=== PATIENT | male | born 1960 | race Caucasian/White ===

== ENCOUNTER 2018-12-26 20:39 | Emergency (ER) | payer OTHER ==
--- OUTSIDE RECORDS SUMMARY | 2018-12-26 20:41 | XMS REPORT ---
:1960 Author Organization [facility] Address [address] [place] [address] Dr. Romero [address] [place] [id number] Care Team Providers Name Role Phone Unavailable Unavailable Unavailable Problems This patient has no known problems. Allergies, Adverse Reactions, Alerts This patient has no known allergies or adverse reactions. Medications This patient has no known medications.
[2018-12-26] MEDS ORDERED: LIDOCAINE 2% MPF 5 ML VIAL ONE (21:29)
[2018-12-26] MEDS ORDERED: TETANUS & DIPHTHERIA TOX,ADULT 0.5 ML VIAL ONE (21:30)
--- NOTE | 2018-12-26 21:50 | ER ---
Nurse's Notes 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 Transition of care: patient was not received from another setting of care. Complicating Factors: There are no complicating factors for this patient. Onset of symptoms was December 26, 2018 at 20:51. Risk Assessment: Do you want to hurt yourself or someone else? Patient reports no desire to harm self or others. Initial Sepsis Screen: Does the patient meet any 2 criteria? No. Patient's initial sepsis screen is negative. Does the patient have a suspected source of infection? No. Patient's initial sepsis screen is negative. Care prior to arrival: None. 20:50 Method Of Arrival: Ambulatory aj 20:50 Acuity: REY 4 aj Triage Assessment: 20:52 General: Appears in no apparent distress. comfortable, Behavior is calm, cooperative, aj appropriate for age. Pain: Denies pain. Neuro: Level of Consciousness is awake, alert, obeys commands, Oriented to person, place, time, situation, Appropriate for age. Respiratory: No deficits noted. Airway is patent Respiratory effort is even, unlabored, Respiratory pattern is regular, symmetrical. Derm: Skin is intact, is healthy with good turgor, Skin is pink, warm \T\ dry. normal. Injury Description: Laceration sustained to dorsal aspect of distal phalanx of left index finger, dorsal aspect of middle phalanx of left index finger and dorsal aspect of proximal phalanx of left index finger. Historical: - Allergies: 20:52 No Known Allergies; - Home Meds: 21:04 aspirin 81 mg Oral chew [Active]; Plavix 75 mg Oral tab [Active]; losartan 50 mg oral jb4 tab [Active]; metoprolol tartrate 25 mg Oral tab [Active]; meloxicam 15 mg oral tab [Active]; baclofen 10 mg Oral tab [Active]; Lipitor 40 mg Oral tab [Active]; gabapentin 800 mg oral tab [Active]; - PSHx: 20:52 Heart stents; aj - Immunization history:: Last tetanus immunization: unknown. - Social history:: Smoking status: Patient uses tobacco products, smokes one-half pack cigarettes per day. - Ebola Screening: : Patient negative for fever greater than or equal to 101.5 degrees Fahrenheit, and additional compatible Ebola Virus Disease symptoms Patient denies exposure to infectious person Patient denies travel to an Ebola-affected area in the 21 days before illness onset No symptoms or risks identified at this time. Screenin:07 Abuse screen: Denies threats or abuse. Nutritional screening: No deficits noted. jb4 Tuberculosis screening: No symptoms or risk factors identified. Fall Risk None identified. Assessment: 21:05 General: Appears in no apparent distress. comfortable, Behavior is calm, cooperative, jb4 appropriate for age. Pain: Complains of pain in palmar aspect of distal phalanx of left index finger and palmar aspect of middle phalanx of left index finger Pain does not radiate. Pain currently is 4 out of 10 on a pain scale. Quality of pain is described as throbbing. Neuro: Level of Consciousness is awake, alert, obeys commands, Oriented to person, place, time, situation. Cardiovascular: Patient's skin is warm and dry. Respiratory: Airway is patent Respiratory effort is even, unlabored, Respiratory pattern is regular, symmetrical. GI: No signs and/or symptoms were reported involving the gastrointestinal system. : No signs and/or symptoms were reported regarding the genitourinary system. EENT: No signs and/or symptoms were reported regarding the EENT system. Derm: Skin Laceration to the left index finger, otherwise skin is intact Skin is pink, warm \T\ dry. Musculoskeletal: Circulation, motion, and sensation intact. Injury Description: Laceration sustained to palmar aspect of distal phalanx of left index finger and palmar aspect of middle phalanx of left index finger is clean, 2.6 to 7.5 cm long, not bleeding. 22:31 Reassessment: Patient appears in no apparent distress at this time. Patient and/or jb4 family updated on plan of care and expected duration. Pain level reassessed. Patient is alert, oriented x 3, equal unlabored respirations, skin warm/dry/pink. Vital Signs: 20:52 BP 150 / 79; Pulse 72; Resp 19; Temp 98.1; Pulse Ox 98% on R/A; Weight 129.27 kg; aj Height 6 ft. 0 in. (182.88 cm); 22:31 BP 140 / 99; Pulse 80; Resp 16; Pulse Ox 98% on R/A; jb4 20:52 Body Mass Index 38.65 (129.27 kg, 182.88 cm) ED Course: 20:42 Patient arrived in ED. do 20:42 Mike Puckett MD is Private Physician. do 20:50 Juan Cuellar, RN is Primary Nurse. jb4 20:50 Art Reveles PA is PHCP. cp 20:51 Abraham Tucker MD is Attending Physician. cp 20:51 Triage completed. aj 20:52 Arm band placed on left wrist. Patient placed in an exam room. aj 21:07 Patient has correct armband on for positive identification. Bed in low position. Call jb4 light in reach. Side rails up X 1. Pulse ox on. NIBP on. 21:48 Mike Puckett MD is Referral Physician. cp 22:31 Assist provider with laceration repair on palmar aspect of middle phalanx of left index jb4 finger that was between 2.6 to 7.5 cm. Patient did not have IV access during this emergency room visit. 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 Exp: jb4 10/14/2020. Lot #: [id number]. } Route: IM; Site: left deltoid; 22:00 Follow up: Response: No adverse reaction jb4 21:40 Drug: Lidocaine (2 %) 5 ml {Note: Administered by ER Provider..} Volume: 5 ml; Route: jb4 Infiltration; 22:10 Follow up: Response: No adverse reaction jb4 Outcome: 21:49 Discharge ordered by . cp 22:31 Discharged to home ambulatory. jb4 22:31 Condition: stable 22:31 Discharge instructions given to patient, Instructed on discharge instructions, follow up and referral plans. Demonstrated understanding of instructions, follow-up care. 22:38 Patient left the ED. jb4 Signatures: Ely Smallwood RN Art Quiles PA PA cp Ogletree, Danielle do Bryson, James, RN RN jb4
--- NOTE | 2018-12-26 21:50 | EDPHYS ---
Physician Documentation [facility] Name: Lazaro Rivers Age: 58 yrs Sex: Male : 1960 Arrival Date: 12/26/2018 Time: 20:42 Bed 16 Private MD: Mike Puckett E ED Physician Abraham Tucker HPI: 12/26 21:10 This 58 yrs old Male presents to ER via Ambulatory with complaints of cp Laceration To Hand. 21:10 The patient has a laceration occurred at home, and there are no complicating factors. cp The injury was accidental. The laceration(s) is(are) located on the left index finger. Onset: The symptoms/episode began/occurred just prior to arrival. Historical: - Allergies: 20:52 No Known Allergies; aj - Home Meds: 21:04 aspirin 81 mg Oral chew [Active]; Plavix 75 mg Oral tab [Active]; losartan 50 mg oral jb4 tab [Active]; metoprolol tartrate 25 mg Oral tab [Active]; meloxicam 15 mg oral tab [Active]; baclofen 10 mg Oral tab [Active]; Lipitor 40 mg Oral tab [Active]; gabapentin 800 mg oral tab [Active]; - PSHx: 20:52 Heart stents; aj - Immunization history:: Last tetanus immunization: unknown. - Social history:: Smoking status: Patient uses tobacco products, smokes one-half pack cigarettes per day. - Ebola Screening: : Patient negative for fever greater than or equal to 101.5 degrees Fahrenheit, and additional compatible Ebola Virus Disease symptoms Patient denies exposure to infectious person Patient denies travel to an Ebola-affected area in the 21 days before illness onset No symptoms or risks identified at this time. ROS: 21:15 Constitutional: Negative for body aches, chills, fever, poor PO intake. cp 21:15 Eyes: Negative for injury, pain, redness, and discharge. cp 21:15 Cardiovascular: Negative for chest pain, palpitations. 21:15 Respiratory: Negative for cough, shortness of breath, wheezing. 21:15 Abdomen/GI: Negative for abdominal pain, nausea, vomiting, and diarrhea. 21:15 Skin: Positive for laceration(s), of the left index finger. 21:15 Neuro: Negative for numbness, weakness. 21:15 All other systems are negative. Exam: 21:30 Constitutional: The patient appears in no acute distress, alert, awake, well developed, cp well nourished. 21:30 Head/Face: Normocephalic, atraumatic. cp 21:30 Chest/axilla: Inspection: normal. 21:30 Cardiovascular: Rate: normal. 21:30 Respiratory: the patient does not display signs of respiratory distress, Respirations: normal, no use of accessory muscles, no retractions, no splinting, no tachypnea. 21:30 Musculoskeletal/extremity: ROM: full active range of motion, in the left index finger, Perfusion: the extremity is normally perfused throughout, Sensation intact. Tendon exam: specific tendon testing normal through active and passive range of motion 21:30 Skin: injury, laceration(s), the wound is approximately 2 cm(s), of the radial side proximal and middle phalanx, that can be described as clean, linear, with mild bleeding. Vital Signs: 20:52 BP 150 / 79; Pulse 72; Resp 19; Temp 98.1; Pulse Ox 98% on R/A; Weight 129.27 kg; aj Height 6 ft. 0 in. (182.88 cm); 22:31 BP 140 / 99; Pulse 80; Resp 16; Pulse Ox 98% on R/A; jb4 20:52 Body Mass Index 38.65 (129.27 kg, 182.88 cm) aj Laceration: 21:45 Wound Repair of 2cm ( 0.8in ) subcutaneous laceration to radial side left index finger cp proximal and middle phalanx. Linear shaped.. Distal neuro/vascular/tendon intact. Anesthesia: Wound infiltrated with 3 mls of 2% lidocaine. Wound prep: Moderate cleansing by nurse, Wound irrigation by nurse. Skin closed with 3 4-0 Prolene using interrupted sutures and sterile technique. Dressed with Bacitracin, tube gauze. Patient tolerated well. MDM: 20:51 Patient medically screened. cp 21:00 Differential diagnosis: superficial laceration, tendon injury, vascular injury. cp 21:48 Data reviewed: vital signs, nurses notes, and as a result, I will discharge patient. cp 21:48 Counseling: I had a detailed discussion with the patient and/or guardian regarding: the cp historical points, exam findings, and any diagnostic results supporting the discharge/admit diagnosis, to return to the emergency department if symptoms worsen or persist or if there are any questions or concerns that arise at home. Response to treatment: the patient's symptoms have markedly improved after treatment, and as a result, I will discharge patient. Special discussion: Wound care and f/u to have sutures removed in 7-10 days. 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 Exp: jb4 10/14/2020. Lot #: [id number]. } Route: IM; Site: left deltoid; 22:00 Follow up: Response: No adverse reaction jb4 21:40 Drug: Lidocaine (2 %) 5 ml {Note: Administered by ER Provider..} Volume: 5 ml; Route: jb4 Infiltration; 22:10 Follow up: Response: No adverse reaction jb4 Disposition: 12/27 06:13 Co-signature as Attending Physician, Abraahm Tucker MD I agree with the assessment and 4 plan of care. Disposition: 12/26/18 21:49 Discharged to Home. Impression: Laceration without foreign body of left index finger without damage to nail. - Condition is Stable. - Discharge Instructions: Laceration Care, Adult. - Medication Reconciliation Form, Thank You Letter, Antibiotic Education, Prescription Opioid Use form. - Follow up: Mike Puckett MD; When: 7 - 10 days; Reason: Staple/Suture removal. - Problem is new. - Symptoms have improved. Signatures: Ely Smallwood RN RN Art Corrales PA PA cp Bryson, James, RN RN jb4 Abraham Tucker MD MD tw4 Corrections: (The following items were deleted from the chart) 12/26 22:38 21:49 12/26/2018 21:49 Discharged to Home. Impression: Laceration without foreign body jb4 of left index finger without damage to nail. Condition is Stable. Forms are Medication Reconciliation Form, Thank You Letter, Antibiotic Education, Prescription Opioid Use. Follow up: Mike Puckett; When: 7 - 10 days; Reason: Staple/Suture removal. Problem is new. Symptoms have improved. cp
== END 2018-12-26 22:38 | disposition home or self-care (01) ==
LOC: ER 20:39
PROC: 0JQK0ZZ Repair Left Hand Subcutaneous Tissue and Fascia, Open Approach (ICD-10-PCS; principal; 2018-12-26)
DX: S61.211A Laceration without foreign body of left index finger without damage to nail, initial encounter (principal); W45.8XXA Other foreign body or object entering through skin, initial encounter; Y93.9 Activity, unspecified; Y92.009 Unspecified place in unspecified non-institutional (private) residence as the place of occurrence of the external cause; Z23 Encounter for immunization; Z95.818 Presence of other cardiac implants and grafts; F17.210 Nicotine dependence, cigarettes, uncomplicated; Z79.01 Long term (current) use of anticoagulants; Z79.82 Long term (current) use of aspirin
CPT/HCPCS: 90471; 90714; 99283

== ENCOUNTER 2020-05-04 16:27 | Emergency (ER) | payer OTHER ==
--- OUTSIDE RECORDS SUMMARY | 2020-05-04 16:29 | XMS REPORT | Continuity of Care Document ---
:1960 Author Organization [employer] Care Team Providers Name Role Phone [employer] Unavailable Un available Problems Problem Status Onset Classification Date Comments Sourc e Date Reported Discharge 05/06/2015 [facility] Diagnosis: 5 Medical Compression Center fracture of L4 lumbar vertebra Discharge 05/06/2015 [facility] Diagnosis: 5 Medical Compression Center fracture of L2 lumbar vertebra L2, L4 WEDGE Active Garth bishop COMPRESSION 5 Medical FRACTURE Center Medications Medication Details Route Status Patient Ordering Order Source Instructions Provider Date 24 HR tramadol 100 mg = 1 Active Tucker as hydrochloride tab, PO, 015 Medical 100 MG Extended Daily, # 30 Cent er Release Tablet tab, 0 Refill(s) Acetaminophen Notes: Do Inactive Garth bishop 325 MG / not exceed 015 Medical Hydrocodone 4gm/day of Center Bitartrate 10 MG acetaminophe Oral Tablet n. (Same [Mcalister 10/325] as: Mcalister 325/10) Acetaminophen 1 tab, Inactive Richard 325 MG / Route: PO, 015 Medical Hydrocodone Drug Form: Center Bitartrate 10 MG TAB, Dosing Oral Tablet Weight [Mcalister 10/325] 106.818, kg, ONCE, STAT, Start date: 05/03/15 3:35:00, Stop date: 05/03/15 3:35:00 Ondansetron Notes: (Same Inactive [facility] as as: Zofran) 015 Medical Center MEDICATION WASTE Product Size: 4 mg Product Wasted: ___ mg Morphine Notes: (Same Inactive [facility] as:MORPhine 015 Medical Sulfate) Center Morphine 4 mg, Route: Inactive [facility] IVP, ONCE, 015 Medical Dosing Center Weight 106.818, kg, Priority: STAT, Start date: 05/02/15 22:59:00, Stop date: 05/02/15 22:59:00 Ondansetron 4 mg, Route: Inactive Tucker as IVP, Drug 015 Medical form: INJ, Center ONCE, Dosing Weight 106.818, kg, Priority: STAT, Start date: 05/02/15 22:59:00, Stop date: 05/02/15 22:59:00 Saline Flush Notes: (Same No Longer [place] 0.9% as: BD Active 015 Medical Posiflush) Center Allergies, Adverse Reactions, Alerts No Known Medication Allergies Immunizations No Data Provided for This Section Results Order Name Results Value Reference Date Interpretation Comments Elin rce Range CHEM PANEL eGFR 75 05/03 Result Comment: The Medical eGFR is Center calculated using the CKD-EPI formula. In most young, healthy individuals the eGFR will be >90 mL/min/1.73m2 . The eGFR declines with age. An eGFR of 60-89 may be normal in some populations, particularly the elderly, for whom the CKD-EPI formula has not been extensively validated. Use of the eGFR is not recommended in the following populations:< br/>
Lamar viduals with unstable creatinine concentration s, including patients and those with serious co-morbid conditions.<b r/>
Patie nts with extremes in muscle mass or diet.

The data above are obtained from the National Kidney Disease Education Program (NKDEP) which additionally recommends that when the eGFR is used in patients with extremes of body mass index for purposes of drug dosing, the eGFR should be multiplied by the estimated BMI. CHEM PANEL Chloride Lvl 106 95 - 109 05/[facility] CHEM PANEL Creatinine 1.1 0.5 - 1.4 05/[facility] CHEM PANEL Sodium Lvl 140 135 - 145 05/03 [facility] CHEM PANEL Calcium Lvl 8.8 8.5 - 10.5 05/03 [facility] CHEM PANEL Potassium Lvl 4.2 3.5 - 5.1 05/[address] [place] [facility] CHEM PANEL CO2 26 24 - 32 05/03 [facility] CHEM PANEL BUN 19 7 - 22 05/03 [facility] CHEM PANEL Glucose Lvl 92 70 - 99 05/03 [facility] CHEM PANEL AST 16 0 - 37 05/03 [facility] CHEM PANEL Bili Total 0.2 0.2 - 1.3 05/03 [facility] CHEM PANEL Alk Phos 77 39 - 136 05/03 [facility] CHEM PANEL Albumin Lvl 3.7 3.5 - 5.0 05/03 [facility] CHEM PANEL Total Protein 7.2 6.4 - 8.4 05/03 [facility] CHEM PANEL ALT 24 0 - 65 05/03 [facility] CHEM PANEL B/C Ratio 17 6 - 25 05/03 [facility] CHEM PANEL AGAP 12.2 10.0 - 05/[address] [facility] CHEM PANEL Globulin 3.5 2.0 - 4.0 05/03 [facility] CHEM PANEL A/G Ratio 1.1 0.7 - 1.6 05/03 [facility] CHEM PANEL Lactic Acid 0.9 0.5 - 2.2 05/03 [facility] HEMATOLOGY Eosinophils # 0.2 0.0 - 0.5 05/03 [facility] HEMATOLOGY Basophils # 0.1 0.0 - 0.2 05/03 [facility] HEMATOLOGY Monocytes # 0.8 0.0 - 0.8 05/03 [facility] HEMATOLOGY Segs-Bands # 4.3 1.5 - 8.1 05/03 [facility] HEMATOLOGY Lymphocytes # 2.2 1.0 - 5.5 05/03 [facility] HEMATOLOGY Segs 56.5 45.0 - 05/[address] [place] [address] [facility] HEMATOLOGY Lymphocytes 29.8 20.0 - 05/[address] [place] [address] [facility] HEMATOLOGY Monocytes 10.1 2.0 - 12.0 05/03 [facility] HEMATOLOGY Eosinophils 2.5 0.0 - 4.0 05/03 [facility] HEMATOLOGY Basophils 1.1 0.0 - 1.0 05/03 [facility] HEMATOLOGY MCH 30.9 27.0 - 05/[address] [place] [address] [facility] HEMATOLOGY MCHC 32.5 32.0 - 05/03 [place] 36.0 /2014 [facility] HEMATOLOGY MCV 95.0 80.0 - 05/03 [place] 94.0 /2014 [facility] HEMATOLOGY Hgb 14.6 14.0 - 05/03 [place] 18.0 /2014 [facility] HEMATOLOGY Hct 44.9 42.0 - 05/03 [place] 54.0 /2014 [facility] HEMATOLOGY Platelet 176 133 - 450 05/03 /2014 [facility] HEMATOLOGY MPV 9.6 7.4 - 10.4 05/03 /2014 [facility] HEMATOLOGY RDW 14.9 11.5 - 05/03 [facility] 14.5 /2014 [facility] HEMATOLOGY RBC 4.73 4.70 - 05/03 [place] 6.10 /2014 [facility] HEMATOLOGY WBC 7.5 3.7 - 10.4 05/03 /2014 [facility] HEMATOLOGY INR 0.87 0.85 - 05/03 [place] 1.17 /2014 [facility] HEMATOLOGY PTT 30.9 22.9 - 05/03 [place] 35.8 /2014 [facility] HEMATOLOGY PT 12.1 12.0 - 05/03 [facility] 14.7 /2014 [facility] IMMUNOLOGY CDC HIV 4th Negative Negative 05/03 Garth s GEN (05/02/15 10:01 PM) /2014 Medic al Center Pathology Reports No Data Provided for This Section Diagnostic Reports Report Value Date Source Spine lumbar wo MRI OF THE LUMBAR SPINE 05/02/2015 [facility] MRI Center DATE: 05/02/2015 at 11:39 p.m. Comparison studies: CT 2014 at 11:15 p.m., outside imaging from [facility] CT lumbar spine 05/02/2015 at 5:31 p.m. CLINICAL HISTORY: Pain post trauma, urinary inco ntinence. Technique: Multiplanar MR imaging was pe rformed utilizing T1 and T2 weighting. FINDINGS: Compression deform ities of the superior endplates of L2 and L4 are again noted with mild loss of height. There is approximately 20% loss of height of L2 and 15% loss of height of L4. There is no retropulsion. The lumbar vertebrae are otherwise intact and in normal anatomic alignment. Marrow edema is noted within the superior L2 and L4 centra. Fatty degenerative endplate changes noted at L5-S1. T11-T12 to L2-L3: The interv ertebral discs are well-maintained demonstrating normal height and hydration. There are no disc bulges or disc protrusions. There is no compromise of the spinal canal or neural foramina. L3-L4: There is diminished T 2 signal within the intervertebral disc consistent with disc degeneration and desiccation there is a mild disc bulge indenting the ventral thecal sac causing mild stenosis of the spinal canal, and mild bilateral neural for aminal stenosis. L4-L5: There is diminished T 2 signal within the intervertebral disc consistent with disc degeneration and desiccation. There is a high T2 signal right paramedian annular tear, and 5.5 mm right paramedia n disc protrusion indenting the ventral thecal sac causing moderate stenosis of the spinal canal. Bulging of the disc leads to mild bilateral neural foraminal stenosis. L5-S1: There is diminished T 2 signal within the intervertebral disc consistent with disc degeneration desiccation. There is loss of disc height comment a diffuse disc bulge extending into the neural for alessandro causing mild bilateral neural foraminal st enosis. The signal within the lower thoracic spinal cord is normal. IMPRESSION: 1. Acute compression fractur es of the superior endplate of L2 and L4 with approximately 20 and 15% loss of height respectively. There is no retropulsion. 2. Mild disc bulge at L3-L4 causing mild stenosis of the spinal canal, and mild bilateral neural foraminal stenosis. 3. 5.5 mm right paramedian d isc protrusion at L4-L5 causing moderate stenosis of the spinal canal. Bulging of the disc leads to mild bilateral neural foraminal stenosis. 4. Disc bulge at L5-S1 causing mild bilateral ne ural foraminal stenosis. Spine lumbar wo EXAM: LUMBAR SPINE CT 05/02/2015 [facility] CT Center DATE: May 02, 2015 11:17:00 PM INDICATION: Pain post trauma TECHNIQUE: Contiguous axial images of t he lumbar spine are obtained. Computer reformatted coronal and sagittal images are also provided. Axial images are available in both bone and soft tissue algorithm. FINDINGS: Acute compression fracture o f the superior endplate at L2 and L4 noted. Approximately 18% height loss at L2 and 13% height loss at L4. No retropulsion of bony fragments identified. Alignment of the spi ne is maintained. There is n o spinal canal narrowing or neuroforaminal stenosis. Degenerative changes with marginal osteophytes, endplate sclerosis and vacuum disc phenomenon is noted at L5-S1. The paraspinous soft tissues are within normal. IMPRESSION: 1. Acute compression fractur es of the superior endplates of L2 (18% height loss) and L4 (13% height loss) No retropulsion of bony fragments. 2. Degenerative changes at L5-S1. Consultation Notes No Data Provided for This Section Discharge Summaries No Data Provided for This Section History and Physicals No Data Provided for This Section Vital Signs Vital Sign Value Date Comments Source Temperature Oral (F) 97.9 F 05/03/2015 [facility] Heart Rate 56 05/03/2015 [facility] Systolic (mm Hg) 150 05/03/2015 [facility] Diastolic (mm Hg) 77 05/03/2015 [facility] Respitory Rate 18 05/03/2015 [facility] Heart Rate 72 05/03/2015 [facility] Systolic (mm Hg) 130 05/03/2015 [facility] Diastolic (mm Hg) 74 05/03/2015 [facility] Respitory Rate 16 05/03/2015 [facility] Systolic (mm Hg) 138 05/03/2015 [facility] Diastolic (mm Hg) 73 05/03/2015 [facility] Respitory Rate 16 05/03/2015 [facility] Heart Rate 66 05/03/2015 [facility] Weight 106.818 05/03/2015 [facility] BMI Calculated 31.94 05/03/2015 [facility] Height 182.88 cm 05/03/2015 [facility] Temperature Oral (F) 98.9 F 05/03/2015 [facility] Encounters Location Location Encounter Encounter Reason Attending ADM DC Stat us Source Details Type Number For Provider Date Date Visit [facility] [id number] Silvano 05/03 05/03 [facility] Emergency Reyes /2014 [facility] Procedures No Data Provided for This Section Assessment and Plan No Data Provided for This Section Plan of Care No Data Provided for This Section Social History Social History Date Source Social History TypeResponse 05/03/2015 [facility] Smoking Status Current every day smoker; Type: Cigarett es; Exposure to Tobacco Smoke self; Cigarette Smoking Last 365 Days Yes; Reg Smoking Cessation Counseling Yes Family History No Data Provided for This Section Advance Directives No Data Provided for This Section Functional Status No Data Provided for This Section
--- OUTSIDE RECORDS SUMMARY | 2020-05-04 16:29 | XMS REPORT | Continuity of Care Document ---
:1960 Author Organization [facility] t Address [address] [place] [address] Care Team Providers Name Role Phone Hiram RODRIGUEZ, K.H. Attending Clinician Singer GARCIA Attending Clinician Segundo AMAYA S Attending Clinician Darryl RODRIGUEZ, L Attending Clinician Selvin Clemente Attending Clinician Florence Reyes Admitting Clinician Problems Condition Condition Condition Status Onset Resolution Last Treating Co mments Source Name Details Category Date Date Treatment Clinician Date L2, L4 Diagnosis Active 2015-11-13 Mem oria WEDGE 05-02 10:17:00 l COMPRESSIO L2, L4 00:00: Anita galindo N FRACTURE WEDGE 00 COMPRESSIO N FRACTURE Active 05/02/2015 [facility] Discharge Problem 2015-05-06 2015-05-06 Memoria Diagnosis: 05-03 07:26:03 07:26:03 l Compressio 05:00: Avinash camarena n fracture Discharge 00 of L4 Diagnosis: lumbar Compressio vertebra n fracture of L4 lumbar vertebra 5 05/06/2015 [facility] Allergies, Adverse Reactions, Alerts This patient has no known allergies or adverse reactions. Social History Smoking Status Start Date Stop Date Source Social History 2015-05-03 02:42:59 [facility] Medications Ordered Filled Start Stop Current Ordering Indication Dosage Frequency Signature Comments Components Source Medication Medication Date Date Medication? Clinician (SIG) Name Name 24 HR Yes 100 mg = 1 Memori a tramadol 05-03 tab, PO, l hydrochlori 10:48: Daily, # El rosales 100 MG 00 30 tab, 0 Extended Refill(s) Release Tablet Acetaminoph No Notes: Do M emoria en 325 MG / 05-03 not exceed l Hydrocodone 10:46: 4gm/day of Jayson Bitartrate 00 acetaminop 10 MG Oral hen. Tablet (Same as: [Beeler Beeler 10/325] 325/10) Acetaminoph No 1 tab, Juan ahsan en 325 MG / 05-03 Route: PO, l Hydrocodone 08:35: Drug Form: [place]ayson Bitartrate 00 TAB, 10 MG Oral Dosing Tablet Weight [Beeler 106.818, 10/325] kg, ONCE, STAT, Start date: 05/03/15 3:35:00, Stop date: 05/03/15 3:35:00 Ondansetron No Notes: Juan ahsan 05-03 (Same as: l 06:05: Zofran) Jayson 00 MEDICATION WASTE Product Size: 4 mg Product Wasted: ___ mg Morphine No Notes: Memoria 05-03 (Same l 06:05: as:MORPhin e Sulfate) Morphine No 4 mg, Memoria 05-03 Route: l 03:59: IVP, ONCE, Jayson 00 Dosing Weight 106.818, kg, Priority: STAT, Start date: 05/02/15 22:59:00, Stop date: 05/02/15 22:59:00 Ondansetron No 4 mg, Memor ia 05-03 Route: l 03:59: IVP, Drug form: INJ, ONCE, Dosing Weight 106.818, kg, Priority: STAT, Start date: 05/02/15 22:59:00, Stop date: 05/02/15 22:59:00 Saline No Notes: Memoria Flush 0.9% 05-03 (Same as: l 02:55: BD Jayson 00 Posiflush) Vital Signs Vital Name Observation Time Observation Value Comments Source Temperature Oral (F) 2015-05-03 11:12:00 97.9 F [facility] [place] Heart Rate 2015-05-03 11:12:00 [facility] [place] Systolic (mm Hg) 2015-05-03 11:12:00 Juan rial [place] Diastolic (mm Hg) 2015-05-03 11:12:00 Mem orial [place] Respitory Rate 2015-05-03 11:12:00 Memori al [place] Heart Rate 2015-05-03 10:00:00 [facility] [place] Systolic (mm Hg) 2015-05-03 10:00:00 Juan rial [place] Diastolic (mm Hg) 2015-05-03 10:00:00 Mem orial [place] Respitory Rate 2015-05-03 10:00:00 Memori al [place] Systolic (mm Hg) 2015-05-03 08:00:00 Juan rial [place] Diastolic (mm Hg) 2015-05-03 08:00:00 Mem orial [place] Respitory Rate 2015-05-03 08:00:00 Memori al [place] Heart Rate 2015-05-03 08:00:00 [facility] [place] Weight 2015-05-03 02:29:00 [facility] [place] BMI Calculated 2015-05-03 02:29:00 Memori al [place] Height 2015-05-03 02:29:00 182.88 cm [facility] [place] Temperature Oral (F) 2015-05-03 02:29:00 98.9 F [facility] [place] Procedures This patient has no known procedures. Encounters Start End Encounter Admission Attending Care Care Encounter Source Date/Time Date/Time Type Type Clinicians Facility Department ID 2020-04-30 2020-04-30 [facility] [id number] 00:00:00 00:00:00 Shivam Fairchild [id number] [place] [id number] [facility] [id number] [address] 2020-04-28 2020-04-28 Emergency [facility] [id number] 20:23:00 23:48:00 Tim Fairchild [id number] [place] [id number] [place] [id number] 2020-04-16 2020-04-16 Telephone [facility] [id number] 00:00:00 00:00:00 Shivam Fairchild [id number] [place] [id number] Professio [id number] nal [facility] 2020-03-05 2020-03-05 [facility] [id number] 00:00:00 00:00:00 [facility] [id number] [facility] [id number] Specialti [id number] es [address] [place] 2020-03-01 2020-03-01 [facility] [id number] 00:00:00 00:00:00 [facility] [id number] Surgical [id number] Specialti [id number] es [address] [place] 2019-12-19 2019-12-19 [facility]ill [facility] [id number] 00:00:00 00:00:00 [facility] [id number] Surgical [id number] Specialti [id number] es [address] [place] 2019-09-13 2019-09-13 [place] [facility] [id number] 00:00:00 00:00:00 [facility] [id number] Surgical [id number] Specialti [phone] es [address] [place] 2019-09-08 2019-09-08 [place] [facility] [id number] 00:00:00 00:00:00 [facility] [id number] Surgical [id number] Specialti [id number] es [address] [place] 2015-05-02 2015-05-03 Outpatient Bryn [facility] [id number] 21:33:00 06:36:00 Derrek Montalvo Results Test Description Test Time Test Comments Results Result Comments Source CHEM PANEL 2015-05-03 75 [facility] Nancy mitchell 03:01:00 CHEM PANEL 2015-05-03 106 [facility] Nancy nn 03:01:00 CHEM PANEL 2015-05-03 1.1 [facility] Nancy nn 03:01:00 CHEM PANEL 2015-05-03 140 [facility] Nancy nn 03:01:00 CHEM PANEL 2015-05-03 8.8 [facility] Nancy nn 03:01:00 CHEM PANEL 2015-05-03 4.2 [facility] Nancy nn 03:01:00 CHEM PANEL 2015-05-03 26 [facility] Nancy nn 03:01:00 CHEM PANEL 2015-05-03 19 [facility] Nancy nn 03:01:00 CHEM PANEL 2015-05-03 92 [facility] Nancy nn 03:01:00 CHEM PANEL 2015-05-03 16 [facility] Nancy nn 03:01:00 CHEM PANEL 2015-05-03 0.2 [facility] Nancy nn 03:01:00 CHEM PANEL 2015-05-03 77 [facility] Nancy nn 03:01:00 CHEM PANEL 2015-05-03 3.7 [facility] Nancy nn 03:01:00 CHEM PANEL 2015-05-03 7.2 [facility] Nancy nn 03:01:00 CHEM PANEL 2015-05-03 24 [facility] Nancy nn 03:01:00 CHEM PANEL 2015-05-03 17 [facility] Nancy nn 03:01:00 CHEM PANEL 2015-05-03 12.2 [facility] Nancy nn 03:01:00 CHEM PANEL 2015-05-03 3.5 [facility] Nancy nn 03:01:00 CHEM PANEL 2015-05-03 1.1 [facility] Nancy nn 03:01:00 CHEM PANEL 2015-05-03 0.9 [facility] Nancy nn 03:01:00 HEMATOLOGY 2015-05-03 0.2 [facility] Nancy nn 03:01:00 HEMATOLOGY 2015-05-03 0.1 [facility] Nancy nn 03:01:00 HEMATOLOGY 2015-05-03 0.8 [facility] Nancy nn 03:01:00 HEMATOLOGY 2015-05-03 4.3 [facility] Nancy nn 03:01:00 HEMATOLOGY 2015-05-03 2.2 [facility] Nancy nn 03:01:00 HEMATOLOGY 2015-05-03 56.5 [facility] Nancy nn 03:01:00 HEMATOLOGY 2015-05-03 29.8 [facility] Nancy nn 03:01:00 HEMATOLOGY 2015-05-03 10.1 [facility] Nancy nn 03:01:00 HEMATOLOGY 2015-05-03 2.5 [facility] Nancy nn 03:01:00 HEMATOLOGY 2015-05-03 1.1 [facility] Nancy nn 03:01:00 HEMATOLOGY 2015-05-03 03:01:00 Test Item Value Reference Range Interpretation Comme nts MCH (test code = MCH) 30.9 pg 27.0-31.0 [facility] [id number] 03:01:[facility].5[facility] 2015-05-03 03:01:0095.0[facility] [id number] 03:01:0014.6[facility] HkerdzwTKKTVPVHTQ5315-05-18 03:01:0044.9[facility] ZnoqthnKIQCZQYEYY5498-64-43 03:01:32989Pqhsjyjx PmxvhmkGYORZJWNHD8041-66-33 03:01:009.6[facility] [place] [id number] 03:01:0014.9[facility] IiyhcmoHYXAFLGOGT7697-17-90 03:01:00 4.73[facility] AkxmjkjEUQLSAQBIJ5354-03-36 03:01:007.5[facility] 2015-05-03 03:01:000.87[facility] VqcoliqIFOQUQQGXZ9977-51-77 03:01:00 Test Item Value Reference Range Interpretation Comments PTT (test code = PTT) 30.9 s 22.9-35.8 [facility] [id number] 03:01:00 Test Item Value Reference Range Interpretation Comments PT (test code = PT) 12.1 s 12.0-14.7 [id number] 03:01:00Negative (05/02/15 10:01 PM)[facility]
--- OUTSIDE RECORDS SUMMARY | 2020-05-04 16:29 | XMS REPORT | Summary of Care ---
:1960 Author Organization [facility] - [facility] Address [address] [place] [address] Care Team Providers Name Role Phone Zurdo Gandhi MD Unavailable Devante Fermin MD Unavailable Kevil Primary Care Provider Reason for Visit Reason Comments Notification The patient's stated th e celebrex was written for 90 days but it says one a day and it has al ways been twice a day. Is this correct? Please call to advise Encounter Details Date Type Department Care Team Description 03/05/2020 Telephone [facility] Orthopaedic Shiva Raymond N otification (The Surgery- Aurelia PAC patient's stated [address], [address] was written [address] [place] 90 [place] [address] [place], [place] one a day and it has [phone] always been twice a day. [phone] Is this correct? Please [phone] call to advise ) (Fax) Allergies No Known Allergiesdocumented as of this encounter (statuses as of 03/05/2020) Medications Medication Sig Dispensed Refills Start Date End Date Status metoprolol tartrate 25 Take 0.5 90 tablet 3 06/12/2017 Active mg tablet tablets by mouth 2 (two) times daily. aspirin 81 mg chewable Take 1 tablet 180 tablet 1 06/12/2017 Active tablet by mouth daily. atorvastatin 40 mg Take 1 tablet 90 tablet 3 06/12/2017 Active tablet by mouth at bedtime. losartan 50 mg tablet Take 1 tablet 90 tablet 2 06/12/2017 Active by mouth daily. Diclofenac Sodium Take 2-4 grams 100 g 3 07/27/2017 Active (VOLTAREN) 1 % twice a day as gelIndications: Chronic needed for pain pain of right knee nitroglycerin 0.[address] 1 tablet 30 tablet 11 07/27/2017 Active sublingual under the tabletIndications: tongue every 5 Coronary artery disease (five) minutes involving [place] as needed for coronary artery of Chest pain. [place] heart, angina presence unspecified gabapentin 600 mg tablet Take 1 tablet 90 tablet 2 10/13/2017 Active by mouth 3 (three) times daily. morpHINE E.R. (MS Take 1 tablet 60 tablet 0 11/02/2017 Active CONTIN) 15 mg SR tablet by mouth every 12 (twelve) hours. VARENICLINE TARTRATE Take by mouth. 0 Active (CHANTIX ORAL) acetaminophen-codeine 0 07/20/2019 Active 300-60 mg tablet levothyroxine 100 mcg 0 07/08/2019 Active tablet methylPREDNISolone Take 21 tablets 1 Each 0 08/31/2019 Active (MEDROL, MULU,) 4 mg by mouth tabletsIndications: Pain SEE-INSTRUCTION of right hand S. follow package directions celecoxib (CELEBREX) 200 Take 1 capsule 180 capsule 0 12/20/19 20 Active mg capsuleIndications: by mouth 2 Pain of right hand (two) times daily with meals. documented as of this encounter (statuses as of 03/05/2020) Active Problems Problem Noted Date Lumbosacral spondylolysis 07/20/2017 Overview: Added automatically from request for joshua darlene [id number] Sacroiliac joint dysfunction 06/16/2017 Overview: Added automatically from request for joshua darlene [id number] Chest pain due to myocardial ischemia 06/11/2017 Sleep disorder breathing 02/20/2016 Facet arthropathy, lumbosacral 02/04/2016 Essential hypertension 01/01/2016 Obesity 01/01/2016 ACC/AHA stage A heart failure 01/01/2016 Tobacco abuse 01/01/2016 Metabolic syndrome 01/01/2016 Atypical chest pain 01/01/2016 Muscle weakness of lower extremity 10/11/2015 Abnormal gait 10/11/2015 Midline low back pain with left-sided sciatica 016 Vertebral compression fracture, sequela documented as of this encounter (statuses as of 03/05/2020) Social History Tobacco Use Types Packs/Day Years Used Date Current Every Day Smoker Cigarettes 1 40 Smokeless Tobacco: Never Used Comments: wants to quit Alcohol Use Drinks/Week oz/Week Comments No 0 Standard drinks or equivalent 0.0 Former drinker - Quit in 1999 Sex Assigned at Date Recorded Not on file Job Start Date Occupation Industry Not on file Not on file Not on file Travel History Travel Start Travel End No recent travel history available. documented as of this encounter Last Filed Vital Signs Not on filedocumented in this encounter Plan of Treatment Health Maintenance Due Date Last Done Comments HEPATITIS C (HCV) SCREEN 1960 PNEUMOCOCCAL 0-64 YEARS COMBINED SERIES (1 of 1 - 1966 PPSV23) DTaP,Tdap,and Td Vaccines (1 - Tdap) 1971 Zoster Recombinant Vaccine (SHINGRIX) (1 of 2) 2010 LUNG CANCER SCREEN: Recommended for age 55-80 with 30 2015 + pack year history COLONOSCOPY 06/19/2017 06/19/2016 INFLUENZA VACCINE (#1) 2020 Depression Screening 08/31/2020 08/31/2019 documented as of this encounter Results Not on filedocumented in this encounter Insurance Payer Benefit Plan / Subscriber ID Effective Dates Phone Addre ss Type Group NAFISA QUIGLEY [id number] 2019-Presen Medicare Adv PLUS PLUS t HMO CLASSIC/VALUE documented as of this encounter
--- OUTSIDE RECORDS SUMMARY | 2020-05-04 16:30 | XMS REPORT | Summary of Care ---
:1960 Author Organization [facility] - Health Address [address] [place] [address] Care Team Providers Name Role Phone Zurdo Gandhi MD Unavailable Devante Fermin MD Unavailable Deysi Primary Care Provider Reason for Referral Radiology Services (STAT) Status Reason Specialty Diagnoses / Referred By Referred To Procedures Contact Contact New Request Diagnostic Diagnoses Cough Tim Vick, Radiology Procedures XR CHEST 1 VW COVID XR CHEST 1 VW DO [address] [facility] [address] [place] [address] Reason for Visit Reason Comments Nosebleed Auth/Cert Status Reason Specialty Diagnoses / Referred By Referred To Procedures Contact Contact Emergency Medicine [facility] ergency Dept [address] [place] [address] Fax: Encounter Details Date Type Department Care Team Description 04/28/2020 Emergency [facility]-Emergency Tim Vick DO Epistaxis (Primary Dx); Department [address] [place] [address] Cough [address] [facility] [address] [place] [address] [place], [place] [id number] Allergies No Known Allergiesdocumented as of this encounter (statuses as of 04/28/2020) Medications Medication Sig Dispensed Refills Start Date [...] 5 Coronary artery disease (five) minutes involving [place] and [place] as needed for coronary artery of Chest pain. [place] heart, angina presence unspecified gabapentin 600 mg [...] 200 Take 1 capsule 180 capsule 0 03/05/20 20 Active mg capsuleIndications: by mouth 2 Pain of right hand (two) times daily with meals. 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 Overview: Added automatically from request for joshua colon [id number] Sacroiliac joint dysfunction 06/16/2017 Overview: Added automatically from request for joshua colon [id number] Chest pain due to myocardial ischemia 06/11/2017 [...] as of this encounter (statuses as of 04/28/2020) Social History Tobacco Use Types Packs/Day Years Used Date Current Every Day Smoker Cigarettes 1 40 Smokeless Tobacco: Never Used Comments: wants to quit Alcohol Use Drinks/Week oz/Week Comments No 0 Standard drinks or equivalent 0.0 Former drinker - Quit in 1999 Sex Assigned at Date Recorded Not on file COVID-19 Exposure Response Date Recorded In the last month, have you been in contact with No / Unsure 04/28/2020 8:13 PM CDT someone who was confirmed or suspected to have Coronavirus / COVID-19? 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 Patient is to apply clamp for 20 minutes if bleeding returns. If still bleeding administer Afrin to affected side. Re-clamp and wait 20 minutes. If large volume of blood in throat, return to ED immediately. If symptoms do not resolve with treatment plan, return to ED. Do not manipulate nose. Hold Aspirin for 72 hours. DIAGNOSIS Diagnoses that have been ruled out: None Diagnoses that are still under consideration: None Final diagnoses: Epistaxis Cough NO LIFE-THREATENING FINDINGS ON TODAY'S EXAM. PROCEDURES IN THE ER TODAY: Orders Placed This Encounter Procedures XR CHEST 1 VW COVID COVID-19 (ID NOW RAPID TESTING) MEDICATIONS ADMINISTERED IN THE ER TODAY AND DISCHARGE MEDICATIONS: No orders of the defined types were placed in this encounter. FOLLOW-UP RECOMMENDATIONS: RECOMMEND FOLLOW-UP WITH A PRIMARY CARE PROVIDER OR SPECIALIST IN 2-5 DAYS, ESPECIALLY IF NO IMPROVEMENT IN SYMPTOMS. MAY FOLLOW-UP WITH A PROVIDER OF YOUR CHOICE, SUCH : 1. A PHYSICIAN OF YOUR CHOICE 2. [facility], . LOCATIONS IN ED [facility] 3. [facility], [address], [place]; [phone] OR, IF YOU WISH TO FOLLOW-UP WITHIN THE [facility], MAY TRY THESE OPTIONS (CLINIC APPOINTMENTS AVAILABLE ON AOUP-HK-KGCY BASIS): 1. SCHEDULE AN APPOINTMENT ONLINE AT WWW.[facility] 2. OR CALL THE [facility]ESS [facility] AT OR 3. OR CALL YOUR [facility] PHYSICIAN'S OFFICE DIRECTLY IF YOU ARE ALREADY AN ESTABLISHED [facility] PATIENT. RETURN TO ER FOR WORSENING OF SYMPTOMS. AttachmentsThe following attachments cannot be sent through Care Everywhere. Epistaxis (Adult) (South African)documented in this encounter ED Notes Tracy Cisneros RN - 04/28/2020 8:23 PM CDTPatient reports mowing the yard and having a sudden onset of a nosebleed. Denies trauma. Patient reports not being able to get the bleeding to stop. Patient taking aspirin and Plavix Tim Shepard DO - 04/28/2020 8:14 PM CDT EMERGENCY DEPARTMENT ENCOUNTER [facility] Patient Name: Lazaro Rivers Date of : 1960 60 year old Exam Room:TX4/TX4 Primary Care Physician: Mima Cerrato Pre- Hospital Patient Escorted by: Friend [6] Mode of Arrival: Personal means [1] EMS Treatment Prior to ED Arrival: CELL LEAD treatment: None Chief Complaint Chief Complaint Patient presents with Nosebleed HPI Lazaro Rivers is a 60 year old male presenting with left sided epistaxis. Cutting grass and it started spontaneously. On ASA and Celebrex. BP moderately elevated. Onset 1 hour CELL LEAD. States he had a cough for a week. Requesting COVID testing. Past Medical History / Immunizations Past Medical History: Diagnosis Date Chronic pain low back pain Colorectal polyps >5 tubular adenoma - Needs repeat Scope 06/2017 History of ETOH abuse also THC use, quit per pt 2000s Hypertension Nerve damage Obesity Vertebral compression fracture, sequela Tetanus received in last 5 years: Yes Past Surgical History Past Surgical History: Procedure Laterality Date CAUDAL EPIDURAL STEROID INJECTION 07/15/2016 CAUDAL EPIDURAL STEROID INJECTION N/A 07/15/2016 Surgeon: Saumya Lacey MD; Location: [facility] COLONOSCOPY N/A 05/22/2016 Surgeon: Jean Carlos Ahuja MD; Location: [facility] OR [facility] COLONOSCOPY N/A 06/19/2016 Surgeon: Jean Carlos Ahuja MD; Location: [facility] OR [facility] DENTAL IMPLANTATIONS FACET JOINT INJECTION 05/26/2016 FACET JOINT INJECTION Bilateral 05/26/2016 Surgeon: Marcello Rocha MD; Location: [facility] OR Location SACROILIAC JOINT INJECTION 10/22/2016 SACROILIAC JOINT INJECTION Bilateral 10/22/2016 Surgeon: Saumya Lacey MD; Location: [facility] SACROILIAC JOINT INJECTION 06/29/2017 SACROILIAC JOINT INJECTION Bilateral 06/29/2017 Surgeon: Patricia Oswald MD; Location: [facility] SACROILIAC JOINT INJECTION 08/05/2017 SACROILIAC JOINT INJECTION Bilateral 08/05/2017 Surgeon: Marcello Rocha MD; Location: [facility] Allergies No Known Allergies Social History Tobacco Use Current Every Day Smoker; Smoked an average of 1 pack/day for 40 years; Smoked: Cigarettes. Smokeless Tobacco: Never used smokeless tobacco. Comments: wants to quit Alcohol Use No. Comments: Former drinker - Quit in 1999 Drug Use No. Review of Systems Review of Systems Constitutional: Negative for activity change, appetite change, chills, diaphoresis and fever. HENT: Positive for nosebleeds. Negative for sore throat and voice change. Eyes: Negative for pain and visual disturbance. Respiratory: Positive for cough. Negative for chest tightness and shortness of breath. Cardiovascular: Negative for chest pain and leg swelling. Gastrointestinal: Positive for nausea. Negative for blood in stool and vomiting. Genitourinary: Negative for dysuria, urgency and difficulty urinating. Musculoskeletal: Negative for back pain. Skin: Negative for color change, pallor and rash. Neurological: Negative for dizziness, light-headedness and headaches. Hematological: Bruises/bleeds easily (on ASA). Physical Exam BP 138/86 | Pulse 52 | Temp 36.6 C (97.8 F) (Oral) | Resp 18 | Wt 129.3 kg (285 lb) | SpO2 97% | BMI 40.89 kg/m Physical Exam Constitutional: General: He is not in acute distress. Appearance: He is well-developed. HENT: Head: Normocephalic and atraumatic. Nose: Right Nostril: No epistaxis. Left Nostril: Epistaxis (large clots and blood. ) present. Mouth/Throat: Comments: Blood in oropharynx Eyes: Pupils: Pupils are equal, round, and reactive to light. Neck: Musculoskeletal: Normal range of motion. Cardiovascular: Rate and Rhythm: Normal rate. Pulmonary: Effort: Pulmonary effort is normal. Abdominal: General: There is no distension. Musculoskeletal: Normal range of motion. Skin: General: Skin is warm and dry. Neurological: Mental Status: He is alert and oriented to person, place, and time. Labs Recent Results (from the past 24 hour(s)) COVID-19 (ID NOW RAPID TESTING) Collection Time: 04/28/20 10:47 PM Specimen: NASOPHARYNGEAL SWAB Result Value Ref Range SARS-CoV-2 Rapid ID NOW Not Detected Not Detected Imaging Hospital Encounter on 04/28/20 XR CHEST 1 VW COVID Narrative PROCEDURE: CHEST XRAY 1 view, CLINICAL INDICATION: cough COMPARISON: Chest x-ray 09/15/2016 FINDINGS: Lungs: The left lung is slightly underexpanded with mild bilateral prominent interstitial markings. No focal consolidation identified. Pleura: No pleural effusion or pneumothorax is seen. The cardiac silhouette is enlarged, similar to prior. No acute bony abnormality. Impression No acute cardiopulmonary abnormality identified. Disclaimer: Generally, the findings on chest imaging in COVID-19 are not specific, and overlap with other infections, including influenza, H1N1, SARS and MERS. According to the Centers for Disease Control (CDC) and the [employer], viral testing remains the only specific method of diagnosis even if CXR or CT findings are suggestive of COVID-19. Preliminary Report Dictated by Resident: Aiden Michaels Orders and Treatments Orders Placed This Encounter Procedures XR CHEST 1 VW COVID COVID-19 (ID NOW RAPID TESTING) No orders of the defined types were placed in this encounter. Procedures See ED Procedure Note Notes & MDM Patient was evaluated for an emergency medical condition related to Nosebleed . Differential diagnoses considered by presenting complaints but not limited to: Epistaxis, COVID, Anticoag effect, and others. . Labs:were ordered, and resulted, any relevant abnormalities were considered. Imaging:Ordered, and resulted, any relevant abnormalities were considered. IV fluids: not indicated Procedures:were performed as documented above. Assessment: Lazaro Rivers is a 60 year old male with left epistaxis. Controlled with afrin and compression. Negative CXR and COVID swab. Stable for discharge with afrin and nasal clamp. Patient is to apply clamp for 20 minutes if bleeding returns. If still bleeding administer Afrin to affected side. Re-clamp and wait 20 minutes. If large volume of blood in throat, return to ED immediately. If symptoms do not resolve with treatment plan, return to ED. Do not manipulate nose. Hold Aspirin for 72 hours. History, physical exam findings, results of visit, differential diagnosis, medication regimens and plan of future care have been considered. Additional MDM may be found in the ED course. Differential diagnosis considered and final disposition made based on information gathered during evaluation and may not be completely ruled out or specifically listed. Vital signs were rechecked before final disposition and determined to be expected for patient's clinical condition.. Diagnosis ICD-10-CM ICD-9-CM 1. Epistaxis R04.0 784.7 2. Cough R05 786.2 Disposition & Follow Up ED Disposition ED Disposition Condition Comment Disch - Home Stable Patient's Medications START taking these medications No medications on file CONTINUE taking these medications which have NOT CHANGED ACETAMINOPHEN-CODEINE 300-60 MG TABLET ASPIRIN 81 MG CHEWABLE TABLET Take 1 tablet by mouth daily. ATORVASTATIN 40 MG TABLET Take 1 tablet by mouth at bedtime. CELECOXIB (CELEBREX) 200 MG CAPSULE Take 1 capsule by mouth 2 (two) times daily with meals. DICLOFENAC SODIUM (VOLTAREN) 1 % GEL Take 2-4 grams twice a day as needed for pain GABAPENTIN 600 MG TABLET Take 1 tablet by mouth 3 (three) times daily. LEVOTHYROXINE 100 MCG TABLET LOSARTAN 50 MG TABLET Take 1 tablet by mouth daily. METHYLPREDNISOLONE (MEDROL, MULU,) 4 MG TABLETS Take 21 tablets by mouth SEE- INSTRUCTIONS. followpackage directions METOPROLOL TARTRATE 25 MG TABLET Take 0.5 tablets by mouth 2 (two) times daily. MORPHINE E.R. (MS CONTIN) 15 MG SR TABLET Take 1 tablet by mouth every 12 (twelve) hours. NITROGLYCERIN 0.[address] 1 tablet under the tongue every 5 (five) minutes as needed for Chest pain. VARENICLINE TARTRATE (CHANTIX ORAL) Take by mouth. START taking Modified Medications as Prescribed No medications on file STOP taking these medications No medications on file Contact information for follow-up Mima Jo Specialty: FM-FAMILY MEDICINE Relationship: PCP - [address] [place] [address] [facility] [phone] [facility]-Emergency Department Specialty: Emergency Medicine [address] [place] [address] Instructions: If symptoms worsen as documented in the discharge Tim Vick DO 04/28/2020 8:53 PM ACTIVE COVID-19 PANDEMIC. documented in this encounter Miscellaneous Notes ED Nurse Note - Joyce Ocampo RN - 04/28/2020 11:38 PM CDTPatient given printed and verbal discharge instructions regarding epistaxis and cough, hydration encouraged. Patient instructed to come back to ED if blood starts draining down his throat. Patient needs to hold aspirin and plavix until Wednseday. Discussed tylenol every 4-6 hours as needed. Patient verbalized understanding of instructions. Patient is awake, alert, and oriented, respirations regular and unlabored, skin is warm and dry, color appropriate for race, moves all extremities. Encouraged to follow up with primary physician. Advised to seek medical attentions for new/prolonged/worsening of symptoms. Vital signs are stable. No adverse reactions to medications given in ER noted upon discharge. D Nurse Note - Ely Walton RN - 04/28/2020 9:51 PM CDTPt's nose started bleeding as he was washing his hands, nasal clamp replaced D Nurse Note - Linda Carver, RN - 04/28/2020 9:35 PM CDTNose clamp removed, bleeding stopped. documented in this encounter Plan of Treatment Name Type Priority Associated Diagnoses Date/Ti me XR CHEST 1 VW COVID IMAGING STAT Cough 04/28/20 20 11:01 PM CDT Health Maintenance Due Date Last Done Comments HEPATITIS C (HCV) SCREEN 1960 PNEUMOCOCCAL 0-64 YEARS COMBINED SERIES (1 of 1 - 1966 PPSV23) DTaP,Tdap,and Td Vaccines (1 - Tdap) 1979 COLON CANCER SCREENING ANNUAL FIT/FOBT 2010 COLON CANCER SCREENING FIT DNA EVERY 3 YEARS 2010 COLON CANCER SCREENING SIGMOIDOSCOPY EVERY 5 YEARS 2010 Zoster Recombinant Vaccine (SHINGRIX) (1 of 2) 2010 LUNG CANCER SCREEN: Recommended for age 55-80 with 30 2015 + pack year history COLONOSCOPY 06/19/2017 06/19/2016 Colorectal Cancer Screening 06/19/2017 INFLUENZA VACCINE (#1) 2020 Depression Screening 08/31/2020 08/31/2019 documented as of this encounter Procedures Procedure Name Priority Date/Time Associated Diagnosis Comme nts XR CHEST 1 VW COVID STAT 04/28/2020 11:01 PM CDT Cough Procedure Note - [facility], Radia nt Results Inft User - 04/28/2020 11:06 PM CDT PROCEDURE: CHEST XRAY 1 view, CLINICAL INDICATION: cough COMPARISON: Chest x-ray 09/15 FINDINGS: Lungs: The left lung is slig htly underexpanded with mild bilateral prominent interstitial anil ngs. No focal consolidation identified. Pleura: No pleural effusion or pneumothorax is seen. The cardiac silhouette is en larged, similar to prior. No acute bony abnormality. IMPRESSION No acute cardiopulmonary abn ormality identified. Disclaimer: Generally, the f indings on chest imaging in COVID-19 are not specific, and overlap with o ther infections, including influenza, H1N1, SARS and MERS. According to the Centers for Disease Control (CDC) and the [employer], viral testing remains the only specific method of diagnosis even if CXR or CT findings a re suggestive of COVID-19. Preliminary Report Dictated by Resident: Aiden Michaels COVID-19 (ID NOW RAPID STAT 04/28/2020 10:47 PM CDT Cough Results for this TESTING) procedure are i n the results section . NOTICE OF PRIVACY Routine 04/28/2020 8:16 PM CDT PRACTICES CONSENT/REFUSAL FOR Routine 04/28/2020 8:12 PM CDT DIAGNOSIS AND TREATMENT documented in this encounter Results COVID-19 (ID NOW RAPID TESTING) (04/28/2020 10:47 PM CDT) SARS-CoV-2 Rapid ID Not Detected Not Detected [facility] Specimen Swab - NASOPHARYNGEAL SWAB Narrative Performed At [facility] COVID-19 Assay is an isothermal nucleic [facility] acid amplification test intended for the qualitative detection of nucleic acid from SARS-CoV-2 viral RNA in nasopharyngeal ([employer]) specimens. It is used under Emergency Use Authorization (EUA) by FDA. The limit of detection (LOD) of the assay is 125 Genome Equivalents/mL. A positive result is indicative of the presence of SARS-CoV-2 RNA. Clinical correlation with patient history and other diagnostic information is necessary to determine patient infection status. A negative (Not Detected) result does not preclude SARS-CoV-2 infection. In patients with clinical symptoms and other tests that are consistent with SARS-CoV-2 infection, negative results should be treated as presumptive negative and a new specimen should be tested with alternative PCR molecular test. Invalid: Please collect a new specimen for repeat patient testing if clinically indicated. Performing Organization Address City/State/Zipcode Phone Number [facility] CLIA: [id number] [place] [address] documented in this encounter Visit Diagnoses Diagnosis Epistaxis - Primary Cough documented in this encounter Additional Health Concerns Infection Onset Date Last Indicated Resolved Time COVID-19 Rule Out 04/28/2020 04/28/2020 04/28/2020 11: 28 PM CDT documented as of this encounter Insurance Payer Benefit Plan / Subscriber ID Effective Dates Phone Addre ss Type Group [employer] QUIGLEY [id number] 2019-Presen Medicare Adv PLUS PLUS t HMO CLASSIC/VALUE documented as of this encounter"
--- OUTSIDE RECORDS SUMMARY | 2020-05-04 16:30 | XMS REPORT | Summary of Care ---
:1960 Author Organization [facility] Address [address] [place] [id number] Care Team Providers Name Role Phone Zurdo Gandhi MD Unavailable Devante Fermin MD Unavailable [place] Primary Care Provider Reason for Visit Reason Comments Notification Encounter Details Date Type Department Care Team Description 03/01/2020 Telephone [facility] Orthopaedic Wiley Andrews MD Notification Surgery- [place] [address] [facility], [place] [address] [place], [place] [phone] Allergies No Known Allergiesdocumented as of this encounter (statuses as of 03/05/2020) Medications Medication Sig Dispensed Refills Start End Status Date Date metoprolol tartrate 25 Take 0.5 90 tablet 3 06/12/20 Active mg tablet tablets by 17 mouth 2 (two) times daily. aspirin 81 mg chewable Take 1 tablet 180 tablet 1 06/12/20 Active tablet by mouth 17 daily. atorvastatin 40 mg Take 1 tablet 90 tablet 3 06/12/20 Active tablet by mouth at 17 bedtime. losartan 50 mg tablet Take 1 tablet 90 tablet 2 06/12/20 Active by mouth 17 daily. Diclofenac Sodium Take 2-4 100 g 3 07/27/20 Ac tive (VOLTAREN) 1 % grams twice a 17 gelIndications: day as needed Chronic pain of right for pain knee nitroglycerin 0.[address] 1 30 tablet 11 07/27/20 Active sublingual tablet under 17 tabletIndications: the tongue Coronary artery every 5 disease involving (five) [place] coronary artery minutes as of [place] heart, needed for angina presence Chest pain. unspecified gabapentin 600 mg Take 1 tablet 90 tablet 2 10/13/19 Active tablet by mouth 3 18 (three) times daily. morpHINE E.R. (MS Take 1 tablet 60 tablet 0 11/03/19 Active CONTIN) 15 mg SR by mouth 18 tablet every 12 (twelve) hours. VARENICLINE TARTRATE Take by 0 Active (CHANTIX ORAL) mouth. acetaminophen-codeine 0 07/20/20 Active 300-60 mg tablet 19 levothyroxine 100 mcg 0 07/08/20 Active tablet 19 methylPREDNISolone Take 21 1 Each 0 08/31/19 A ctive (MEDROL, MULU,) 4 mg tablets by 20 tabletsIndications: mouth Pain of right hand SEE-INSTRUCTI ONS. follow package directions celecoxib (CELEBREX) Take 1 180 capsule 0 03/05/20 Active 200 mg capsule by 20 capsuleIndications: mouth 2 (two) Pain of right hand times daily with meals. celecoxib (CELEBREX) Take 1 180 capsule 0 12/20/19 Discontinued 200 mg capsule by 20 020 (Reorder) capsuleIndications: mouth 2 (two) Pain of right hand times daily with meals. 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
--- OUTSIDE RECORDS SUMMARY | 2020-05-04 16:30 | XMS REPORT | Summary of Care ---
:1960 Author Organization [facility] Address [address] [place] [address] Care Team Providers Name Role Phone Zurdo Gandhi MD Unavailable Devante Fermin MD Unavailable [place] Primary Care Provider Reason for Visit Reason Comments Results Encounter Details Date Type Department Care Team Description 04/16/2020 Telephone [facility] Cardiology- Shivam Gandhi MD Results [place] [address] [facility] [address] [place] [address] [place] [address] [phone] Allergies No Known Allergiesdocumented as of this encounter (statuses as of 04/16/2020) Medications Medication Sig Dispensed Refills Start Date [...] 5 Coronary artery disease (five) minutes involving [place] as needed for coronary artery of Chest pain. 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/2017 Overview: Added automatically from request for joshua darlene [id number] Sacroiliac joint dysfunction 06/16/2017 Overview: Added automatically from request for joshua darlene [id number] Chest pain due to myocardial ischemia 06/11/2017 [...] as of this encounter (statuses as of 04/16/2020) Social History Tobacco Use Types Packs/Day Years Used Date Current Every Day Smoker Cigarettes 1 40 Smokeless Tobacco: Never Used Comments: wants to quit Alcohol Use Drinks/Week oz/Week Comments No 0 Standard drinks or equivalent 0.0 Former drinker - Quit in 1999 Sex Assigned at Date Recorded Not on file documented as of this encounter Last Filed Vital Signs Not on filedocumented in this encounter Miscellaneous Notes Telephone Encounter - Corie Fay RN - 04/16/2020 1:32 PM CDTAttempted to call patient to inform no results for blood type on file. No answer. Message left withthis info and to call PCP to have them order the test. Telephone Encounter - Lynn Grajeda - 04/16/2020 9:01 AM CDTPatient is requesting a call back because he would like to know his blood type. Please advise. documented in this encounter Plan of Treatment Health [...] Phone Addre ss Type Group [employer] [id number] 2019-Presen Medicare Adv PLUS PLUS t HMO CLASSIC/VALUE documented as of this encounter
--- OUTSIDE RECORDS SUMMARY | 2020-05-04 16:30 | XMS REPORT | Summary of Care ---
:1960 Author Organization [facility] Address [address] [place] [address] Care Team Providers Name Role Phone Zurdo Gandhi MD Unavailable Devante Fermin MD Unavailable [place] Primary Care Provider Reason for Visit Reason Comments Notification Encounter Details Date Type Department Care Team Description 04/30/2020 Telephone [facility] Cardiology- Shivam Gandhi MD Notification [place] [address] [facility] [address] [place] [address] [place] [address] [phone] Allergies No Known Allergiesdocumented as of this encounter (statuses as of 05/01/2020) Medications Medication Sig Dispensed Refills Start Date [...] 5 Coronary artery disease (five) minutes involving [place] as needed for coronary artery of Chest pain. 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 He was bleeding "really bad." Advised patient's that Dr. Gandhi recommends that he stop the plavix since his stent was 3 years ago and to continue to ASA. and patient verbalized understanding. Scheduled a follow-up appointment with the patient on 05.28.20 @ 11 am. Telephone Encounter - Helen Wiley - 04/30/2020 4:59 PM CDTPatient's is calling back to be advised about blood thinners and nose bleeds from Dr. Gandhi. Please call patient back at [phone]. Thank you! elephone Encounter - Carmela Eugene - 04/30/2020 9:29 AM CDTPatient on 04/28/2020 had to go to [facility] to the ER for nose bleeds. Dr. Vick in the ER advised he stop taking his blood thinner plavix and Aspirin till 05/02/2020. Patient's spouse is wondering if this is what he should do? Also, should he go see a ENT for the nose bleeds? Patient's spouse would like to hear back from Dr. Gandhi concerning the blood thinners. Thank You. documented in this encounter Plan of Treatment Date Type Specialty Care Team Description 05/28/2020 Office Visit Cardiology Shivam Gandhi MD [address] [place] [address] [place] [phone] Health Maintenance Due Date Last Done Comments [...] Effective Dates Phone Addre ss Type Group [facility] DANN QUIGLEY [id number] 2019-Presen Medicare Adv PLUS PLUS t HMO CLASSIC/VALUE documented as of this encounter
[2020-05-04] MEDS ORDERED: BENZONATATE 100 MG CAP PO ONE (18:41)
--- NOTE | 2020-05-04 18:50 | ER ---
Nurse's Notes [facility] Name: Lazaro Rivers Age: 60 yrs Sex: Male : 1960 Arrival Date: 05/04/2020 Time: 16:29 Bed 13 Private MD: Saray Bryan Diagnosis: Epistaxis Presentation: 05/04 16:31 Chief complaint: Patient states: nose bleeding started today at 1500. Stopped blood sv thinner on Thursday. Coronavirus screen: Client denies travel out of the [place] in the last 14 days. At this time, the client does not indicate any symptoms associated with coronavirus-19. Ebola Screen: No symptoms or risks identified at this time. Risk Assessment: Do you want to hurt yourself or someone else? Patient reports no desire to harm self or others. Onset of symptoms was May 04, 2020. 16:31 Method Of Arrival: Ambulatory sv 16:31 Acuity: REY 3 sv 16:33 Initial Sepsis Screen: Does the patient meet any 2 criteria? No. Patient's initial sv sepsis screen is negative. Does the patient have a suspected source of infection? No. Patient's initial sepsis screen is negative. Historical: - Allergies: 16:33 No Known Drug Allergies; sv - PMHx: 17:00 Hypertension; Thyroid problem; aa5 - PSHx: 16:33 Heart stents; sv - Immunization history:: Adult Immunizations unknown. - Social history:: Smoking status: unknown. Screenin:00 Abuse screen: Denies threats or abuse. Nutritional screening: No deficits noted. aa5 Tuberculosis screening: No symptoms or risk factors identified. Fall Risk None identified. Assessment: 17:00 General: Appears comfortable, Behavior is calm, cooperative. Pain: Denies pain. Neuro: aa5 Level of Consciousness is awake, alert, obeys commands, Oriented to person, place, time, situation. Cardiovascular: Patient's skin is warm and dry. Respiratory: Reports cough x 2 weeks ago, pt reports he was recently tested for covid-19 and was negative Airway is patent Respiratory effort is even, unlabored, Respiratory pattern is regular, symmetrical. GI: No signs and/or symptoms were reported involving the gastrointestinal system. : No signs and/or symptoms were reported regarding the genitourinary system. EENT: Nose clip noted, no active nose bleeding noted, bleeding controlled using nose clip. . Derm: Skin is pink, warm \\T\\ dry. Musculoskeletal: Range of motion: intact in all extremities. 17:00 Reassessment: Pt states "I was seen for a nose bleed on Thursday at [facility] and aa5 they gave a spray for it but today I've been bleeding since around 3pm and right now it's the first time it's stopped" . 17:30 Reassessment: Nose clip removed by Nataliia Leal NP, no active bleeding noted. . aa5 18:00 Reassessment: Patient is alert, oriented x 3, equal unlabored respirations, skin aa5 warm/dry/pink. No active nose bleeding noted. . 18:30 Reassessment: Patient is alert, oriented x 3, equal unlabored respirations, skin aa5 warm/dry/pink. No nose bleeding noted. . 19:05 Reassessment: Patient appears in no apparent distress at this time. Patient and/or wh family updated on plan of care and expected duration. Pain level reassessed. Patient is alert, oriented x 3, equal unlabored respirations, skin warm/dry/pink. Vital Signs: 16:33 BP 158 / 77; Pulse 59; Resp 20; Temp 98.7(TE); Pulse Ox 100% on R/A; Weight 129.27 kg; sv Height 6 ft. 0 in. (182.88 cm); 19:00 BP 152 / 84; Pulse 51; Resp 18; Pulse Ox 99% ; wh 16:33 Body Mass Index 38.65 (129.27 kg, 182.88 cm) sv ED Course: 16:29 Patient arrived in ED. mr 16:30 Saray Bryan MD is Private Physician. mr 16:32 Triage completed. sv 16:33 Arm band placed on. sv 17:00 Patient has correct armband on for positive identification. Bed in low position. Call aa5 light in reach. Side rails up X 1. Pulse ox on. NIBP on. 17:10 Taisha Smallwood, LUIS ENRIQUE is Primary Nurse. aa5 17:35 Nataliia Leal FNP-C is PHCP. snw 17:35 Gonzales Sanford MD is Attending Physician. snw 18:36 Nataliia Leal FNP-C is PHCP. snw 18:36 Gonzales Sanford MD is Attending Physician. snw 18:48 Eda Santiago MD is Referral Physician. w 19:17 No provider procedures requiring assistance completed. Patient did not have IV access wh during this emergency room visit. Administered Medications: 18:30 Drug: Tessalon Perle 200 mg Route: PO; aa5 19:19 Follow up: Response: No adverse reaction Outcome: 18:49 Discharge ordered by . snw 19:18 Discharged to home ambulatory. wh 19:18 Condition: stable 19:18 Discharge instructions given to patient, Instructed on discharge instructions, follow up and referral plans. medication usage, POC Demonstrated understanding of instructions, follow-up care, medications, POC Prescriptions given X 1. 19:19 Patient left the ED. Signatures: Eda Fontana, RN RN Nataliia Michele, MEAT SMOKER-C MEAT SMOKER-Csnw Kelly PastranaTaisha RN RN aa5 Michael Patino Corrections: (The following items were deleted from the chart) 16:38 16:33 Pulse 59bpm; Resp 20bpm; Pulse Ox 100%; Temp 98.7F; 129.27 kg; Height 6 ft. 0 sv in.; BMI: 38.6; sv 19:09 17:00 Respiratory: Airway is patent Respiratory effort is even, unlabored, Respiratory aa5 pattern is regular, symmetrical, aa5
--- NOTE | 2020-05-04 18:50 | EDPHYS ---
Physician Documentation [facility] Name: Lazaro Rivers Age: 60 yrs Sex: Male : 1960 Arrival Date: 05/04/2020 Time: 16:29 Bed 13 Private MD: Saray Bryan ED Physician Gonzales Sanford HPI: 05/04 18:55 This 60 yrs old Male presents to ER via Ambulatory with complaints of Nose snw Bleed. 18:55 The patient presents with a nose bleed. Onset: The symptoms/episode began/occurred at snw 15:00, and became persistent. Associated signs and symptoms: The patient has no apparent associated signs or symptoms, Loss of consciousness: the patient experienced no loss of consciousness. Severity of symptoms: At their worst the symptoms were moderate severe. The patient has experienced a previous episode, 04/29/20. [facility] for epistaxis. pt is without bleeding at this time. Historical: - Allergies: 16:33 No Known Drug Allergies; sv - PMHx: 17:00 Hypertension; Thyroid problem; aa5 - PSHx: 16:33 Heart stents; sv - Immunization history:: Adult Immunizations unknown. - Social history:: Smoking status: unknown. ROS: 18:53 Constitutional: Negative for fever, chills, and weight loss, Eyes: Negative for injury, snw pain, redness, and discharge, Neck: Negative for injury, pain, and swelling, Cardiovascular: Negative for chest pain, palpitations, and edema, Respiratory: Negative for shortness of breath, cough, wheezing, and pleuritic chest pain, Abdomen/GI: Negative for abdominal pain, nausea, vomiting, diarrhea, and constipation, Back: Negative for injury and pain, : Negative for injury, bleeding, discharge, and swelling, MS/Extremity: Negative for injury and deformity, Skin: Negative for injury, rash, and discoloration, Neuro: Negative for headache, weakness, numbness, tingling, and seizure. 18:53 ENT: Positive for nose bleed. Exam: 18:51 Constitutional: This is a well developed, well nourished patient who is awake, alert, snw and in no acute distress. Head/Face: Normocephalic, atraumatic. Eyes: Pupils equal round and reactive to light, extra-ocular motions intact. Lids and lashes normal. Conjunctiva and sclera are non-icteric and not injected. Cornea within normal limits. Periorbital areas with no swelling, redness, or edema. Neck: Trachea midline, no thyromegaly or masses palpated, and no cervical lymphadenopathy. Supple, full range of motion without nuchal rigidity, or vertebral point tenderness. No Meningismus. Chest/axilla: Normal chest wall appearance and motion. Nontender with no deformity. No lesions are appreciated. Cardiovascular: Regular rate and rhythm with a normal S1 and S2. No gallops, murmurs, or rubs. Normal PMI, no JVD. No pulse deficits. Respiratory: Lungs have equal breath sounds bilaterally, clear to auscultation and percussion. No rales, rhonchi or wheezes noted. No increased work of breathing, no retractions or nasal flaring. Abdomen/GI: Soft, non-tender, with normal bowel sounds. No distension or tympany. No guarding or rebound. No evidence of tenderness throughout. Back: No spinal tenderness. No costovertebral tenderness. Full range of motion. Skin: Warm, dry with normal turgor. Normal color with no rashes, no lesions, and no evidence of cellulitis. MS/ Extremity: Pulses equal, no cyanosis. Neurovascular intact. Full, normal range of motion. Neuro: Awake and alert, GCS 15, oriented to person, place, time, and situation. Cranial nerves II-XII grossly intact. Motor strength 5/5 in all extremities. Sensory grossly intact. Cerebellar exam normal. Normal gait. Psych: Awake, alert, with orientation to person, place and time. Behavior, mood, and affect are within normal limits. 18:51 ENT: Nose: External nose: no obvious acute abnormality, Nasal mucosa: edematous, erythematous, bleeding, is seen from the right nare, and is minimal, anterior. nasal drainage, is not appreciated, Mouth: is normal, Posterior pharynx: is normal. 18:51 ENT: Nose: left mucuos membranes so swollen that left nare is occluded, no bleeding noted. Vital Signs: 16:33 BP 158 / 77; Pulse 59; Resp 20; Temp 98.7(TE); Pulse Ox 100% on R/A; Weight 129.27 kg; sv Height 6 ft. 0 in. (182.88 cm); 19:00 BP 152 / 84; Pulse 51; Resp 18; Pulse Ox 99% ; wh 16:33 Body Mass Index 38.65 (129.27 kg, 182.88 cm) MDM: 18:36 Patient medically screened. snw 18:54 Data reviewed: vital signs, nurses notes. Data interpreted: Pulse oximetry: on room air snw is 100 %. Interpretation: normal. Counseling: I had a detailed discussion with the patient and/or guardian regarding: the historical points, exam findings, and any diagnostic results supporting the discharge/admit diagnosis, the need for outpatient follow up, to return to the emergency department if symptoms worsen or persist or if there are any questions or concerns that arise at home. Special discussion: I have referred the patient to see his PCP for further evaluation of high blood pressure. Based on the history and exam findings, there is no indication for further emergent testing or inpatient evaluation. I discussed with the patient/guardian the need to see the ENT specialist for further evaluation of the symptoms. ED course: Pt shown equipment necessary for epistaxis balloon and decided he did not want that therapy at this time. Administered Medications: 18:30 Drug: Tessalon Perle 200 mg Route: PO; aa5 19:19 Follow up: Response: No adverse reaction Disposition: 05/05 07:05 Co-signature as Attending Physician, Gonzales Sanford MD I agree with the assessment and kdr plan of care. Disposition: 05/04/20 18:49 Discharged to Home. Impression: Epistaxis. - Condition is Stable. - Discharge Instructions: Nosebleed, Adult, Cryotherapy. - Prescriptions for Tessalon Perles 100 mg Oral Capsule - take 1 capsule by ORAL route every 8 hours As needed; 30 capsule. - Medication Reconciliation Form, Thank You Letter, Antibiotic Education, Prescription Opioid Use form. - Follow up: Eda Santiago MD; When: 2 - 3 days; Reason: Recheck today's complaints, Continuance of care. - Notes: Vaseline to q-tip gently in nares every night for one week Signatures: Eda Fontana, Gonzales Greer RN, MD MD kdr Waters, Shelly, FLAME CUTTING SUPERVISOR-C FLAME CUTTING SUPERVISOR-Csnw Taisha Smallwood RN RN aa5 Michael Patino Corrections: (The following items were deleted from the chart) 05/04 19:19 18:49 05/04/2020 18:49 Discharged to Home. Impression: Epistaxis. Condition is Stable. wh Forms are Medication Reconciliation Form, Thank You Letter, Antibiotic Education, Prescription Opioid Use. Follow up: Eda Santiago; When: 2 - 3 days; Reason: Recheck today's complaints, Continuance of care. snw
[2020-05-04 21:15] VITALS: TEMP 98.7
[2020-05-04 21:16] VITALS: BP 152/84; O2SAT 99
== END 2020-05-04 19:19 | disposition home or self-care (01) ==
LOC: ER 16:27
DX: R04.0 Epistaxis (principal); I10 Essential (primary) hypertension; Z95.818 Presence of other cardiac implants and grafts
CPT/HCPCS: 99283

== ENCOUNTER 2020-05-11 17:08 | Day surgery (SDC) | payer OTHER ==
--- OUTSIDE RECORDS SUMMARY | 2020-05-11 17:10 | XMS REPORT | Continuity of Care Document ---
:1960 Author Organization Traveler | VIP Care Team Providers Name Role Phone Traveler | VIP Unavailable Un available Problems Problem Status Onset Classification Date Comments Sourc e Date Reported Discharge 05/06/2015 [facility] Diagnosis: [facility] fracture of L4 lumbar vertebra Discharge 05/06/2015 [facility] Diagnosis: [facility] fracture of [...] not exceed 015 Medical Hydrocodone 4gm/day of [place] Bitartrate 10 MG acetaminophe Oral Tablet n. (Same [[place] 10/325] as: [place] 325/10) Acetaminophen 1 tab, Inactive Richard 325 MG / Route: PO, 015 Medical Hydrocodone Drug Form: Center Bitartrate 10 MG TAB, Dosing Oral Tablet Weight [[place] 10/325] 106.818, kg, ONCE, STAT, Start date: 05/03/15 3:35:00, Stop date: 05/03/15 3:35:00 Ondansetron Notes: (Same Inactive [facility] as as: Zofran) 015 [facility] Center MEDICATION WASTE Product Size: 4 mg Product Wasted: ___ mg Morphine Notes: (Same Inactive [facility] as:MORPhine 015 Medical Sulfate) Center Morphine 4 mg, Route: Inactive [facility] IVP, ONCE, 015 [facility] Weight [...] Chloride Lvl 106 95 - 109 05/03 [facility] CHEM PANEL Creatinine 1.1 0.5 - 1.4 05/03 [facility] CHEM PANEL Sodium Lvl 140 135 - 145 05/03 [facility] CHEM PANEL Calcium Lvl 8.8 8.5 - 10.5 05/03 [facility] CHEM PANEL Potassium Lvl 4.2 3.5 - 5.1 05/03 [place] [facility] CHEM PANEL CO2 26 24 - 32 05/03 [facility] CHEM PANEL BUN 19 7 - 22 05/03 [facility] CHEM PANEL Glucose Lvl 92 70 - 99 05/03 [facility] CHEM PANEL AST 16 0 - 37 05/03 [facility] CHEM PANEL Bili Total 0.2 0.2 - 1.3 05/03 [facility] CHEM PANEL Alk Phos 77 39 - 136 05/03 [facility] CHEM PANEL Albumin Lvl 3.7 3.5 - 5.0 05/03 [facility] CHEM PANEL Total Protein 7.2 6.4 - 8.4 05/03 [facility] CHEM PANEL ALT 24 0 - 65 05/03 [facility] CHEM PANEL B/C Ratio 17 6 - 25 05/03 [facility] CHEM PANEL AGAP 12.2 10.0 - 05/03 20.0 [facility] CHEM PANEL Globulin 3.5 2.0 - 4.0 05/03 [facility] CHEM PANEL A/G Ratio 1.1 0.7 - 1.6 05/03 [facility] CHEM PANEL Lactic Acid 0.9 0.5 - 2.2 05/03 [facility] HEMATOLOGY Eosinophils # 0.2 0.0 - 0.5 05/03 [facility] HEMATOLOGY Basophils # 0.1 0.0 - 0.2 05/03 [facility] HEMATOLOGY Monocytes # 0.8 0.0 - 0.8 05/03 [facility] HEMATOLOGY Segs-Bands # 4.3 1.5 - 8.1 05/03 [facility] HEMATOLOGY Lymphocytes # 2.2 1.0 - 5.5 05/03 [facility] HEMATOLOGY Segs 56.5 45.0 - 05/03 [place] 75.0 [facility] HEMATOLOGY Lymphocytes 29.8 20.0 - 05/03 [place] 40.0 [facility] HEMATOLOGY Monocytes 10.1 2.0 - 12.0 05/03 [facility] HEMATOLOGY Eosinophils 2.5 0.0 - 4.0 05/03 [facility] HEMATOLOGY Basophils 1.1 0.0 - 1.0 05/03 [facility] HEMATOLOGY MCH 30.9 27.0 - 05/03 [place] 31.0 [facility] HEMATOLOGY MCHC 32.5 32.0 - 05/03 [place] 36.0 /2014 [facility] HEMATOLOGY MCV 95.0 80.0 - 05/03 [place] 94.0 /2014 [facility] HEMATOLOGY Hgb 14.6 14.0 - 05/03 [place] 18.0 /2014 [facility] HEMATOLOGY Hct 44.9 42.0 - 05/03 [place] 54.0 /2014 [facility] HEMATOLOGY Platelet 176 133 - 450 05/03 /2014 [facility] HEMATOLOGY MPV 9.6 7.4 - 10.4 05/03 /2014 [facility] HEMATOLOGY RDW 14.9 11.5 - 05/03 [facility] 14.5 /2014 [facility] HEMATOLOGY RBC 4.73 4.70 - 05/03 [place] 6.10 /2014 [facility] HEMATOLOGY WBC 7.5 3.7 - 10.4 05/03 /2014 [facility] HEMATOLOGY INR 0.87 0.85 - 05/03 [place] 1.17 /2014 [facility] HEMATOLOGY PTT 30.9 22.9 - 05/03 [place] 35.8 /2014 [facility] HEMATOLOGY PT 12.1 12.0 - 05/03 [facility] 14.7 /2014 [facility] IMMUNOLOGY CDC HIV 4th Negative Negative 05/03 [facility] (05/02/15 10:01 PM) /[facility] Pathology Reports No Data Provided for This Section Diagnostic Reports Report Value Date Source Spine lumbar wo MRI OF THE LUMBAR SPINE 05/02/2015 [facility] MRI Center DATE: 05/02/2015 at 11:39 p.m. Comparison studies: CT 2014 at 11:15 p.m., outside imaging from [facility] CT lumbar spine 05/02/2015 at [...] lumbar wo EXAM: LUMBAR SPINE CT 05/02/2015 [facility] CT Center DATE: May 02, 2015 11:17:00 [...] Source Temperature Oral (F) 97.9 F 05/03/2015 [facility] Heart Rate 56 05/03/2015 [facility] Systolic (mm Hg) 150 05/03/2015 [facility] Diastolic (mm Hg) 77 05/03/2015 [facility] Respitory Rate 18 05/03/2015 [facility] Heart Rate 72 05/03/2015 [facility] Systolic (mm Hg) 130 05/03/2015 [facility] Diastolic (mm Hg) 74 05/03/2015 [facility] Respitory Rate 16 05/03/2015 [facility] Systolic (mm Hg) 138 05/03/2015 [facility] Diastolic (mm Hg) 73 05/03/2015 [facility] Respitory Rate 16 05/03/2015 [facility] Heart Rate 66 05/03/2015 [facility] Weight 106.818 05/03/2015 [facility] BMI Calculated 31.94 05/03/2015 [facility] Height 182.88 cm 05/03/2015 [facility] Temperature Oral (F) 98.9 F 05/03/2015 [facility] Encounters Location Location Encounter Encounter Reason Attending ADM DC Stat us Source Details Type Number For Provider Date Date Visit [facility] [id number] Silvano 05/03 05/03 [facility] Reyes /2014 [facility] Procedures No Data Provided for This Section Assessment and Plan No Data Provided for This Section Plan of Care No Data Provided for This Section Social History Social History Date Source Social History TypeResponse 05/03/2015 [facility] Smoking Status Current every day smoker; Type: Cigarett es; Exposure to Tobacco Smoke self; Cigarette Smoking Last 365 Days Yes; Reg Smoking Cessation Counseling Yes Family History No Data Provided for This Section Advance Directives No Data Provided for This Section Functional Status No Data Provided for This Section"
--- OUTSIDE RECORDS SUMMARY | 2020-05-11 17:10 | XMS REPORT | Continuity of Care Document ---
:1960 Author Organization [facility] t Address [address] [place] [address] Care Team Providers Name Role Phone Hiram [...] WEDGE 00 COMPRESSIO N FRACTURE Active 05/02/2015 [facility] Discharge Problem 2015-05-06 2015-05-06 Memoria Diagnosis: 05-03 07:26:03 07:26:03 l Compressio 05:00: Avinash camarena n fracture Discharge 00 of L4 Diagnosis: lumbar Compressio vertebra n fracture of L4 lumbar vertebra 5 05/06/2015 [facility] Allergies, Adverse Reactions, Alerts This patient has no known allergies or adverse reactions. Social History Smoking Status Start Date Stop Date Source Social History 2015-05-03 02:42:59 [facility] Medications Ordered Filled Start Stop Current [...] not exceed l Hydrocodone 10:46: 4gm/day of [place] Bitartrate 00 acetaminop 10 MG Oral hen. Tablet (Same as: [[place] 10/325] 325/10) Acetaminoph No 1 tab, Juan ahsan en 325 MG / 05-03 Route: PO, l Hydrocodone 08:35: Drug Form: [place] Bitartrate 00 TAB, 10 MG Oral Dosing Tablet Weight [Wirt 106.818, 10/325] kg, ONCE, STAT, Start date: 05/03/15 3:35:00, Stop date: 05/03/15 3:35:00 Ondansetron No Notes: Juan ahsan 05-03 (Same as: l 06:05: Zofran) [place] 00 MEDICATION WASTE Product Size: 4 mg Product Wasted: ___ mg Morphine No Notes: Memoria 05-03 (Same l 06:05: as:MORPhin e Sulfate) Morphine No 4 mg, Memoria 05-03 Route: l 03:59: IVP, ONCE, [place] 00 Dosing Weight 106.818, kg, Priority: STAT, [...] Oral (F) 2015-05-03 11:12:00 97.9 F [facility] [place] Heart Rate 2015-05-03 11:12:00 [facility] Systolic (mm Hg) 2015-05-03 11:12:00 Juan rial [place] Diastolic (mm Hg) 2015-05-03 11:12:00 Mem [facility] [place] Respitory Rate 2015-05-03 11:12:00 Memori al [place] Heart Rate 2015-05-03 10:00:00 [facility] [place] Systolic (mm Hg) 2015-05-03 10:00:00 Juan rial [place] Diastolic (mm Hg) 2015-05-03 10:00:00 Mem orial [place] Respitory Rate 2015-05-03 10:00:00 Memori al [place] Systolic (mm Hg) 2015-05-03 08:00:00 Juan rial [place] Diastolic (mm Hg) 2015-05-03 08:00:00 Mem orial [place] Respitory Rate 2015-05-03 08:00:00 [facility] [place] Heart Rate 2015-05-03 08:00:00 [facility] [place] Weight 2015-05-03 02:29:00 [facility] [place] BMI Calculated 2015-05-03 02:29:00 [facility] [place] Height 2015-05-03 02:29:00 182.88 cm [facility] [place] Temperature Oral (F) 2015-05-03 02:29:00 98.9 F [facility] [place] Procedures This patient has no known procedures. Encounters Start End Encounter Admission Attending Care Care Encounter Source Date/Time Date/Time Type Type Clinicians Facility Department ID 2020-04-30 2020-04-30 Telephone Hiram [facility] [id number] 00:00:00 00:00:00 Shivam Fairchild [id number] [place] [id number] [facility] [id number] [address] 2020-04-28 2020-04-28 Emergency [facility] [id number] 20:23:00 23:48:00 Tim Fairchild [id number] [place] [id number] [id number] 2020-04-16 2020-04-16 Telephone Hiram [facility] [id number] 00:00:00 00:00:00 Shivam Fairchild [id number] [place] [id number] Professio [id number] nal 059 [facility] 2020-03-05 2020-03-05 Telephone Segundo [facility] [id number] 00:00:00 00:00:00 [facility] [id number] Surgical [id number] Specialti [id number] es [address] [place] 2020-03-01 2020-03-01 [facility] [id number] 00:00:00 00:00:00 [facility] [id number] Surgical [id number] Specialti [id number] [address] 2019-12-19 2019-12-19 [facility] [id number] 00:00:00 00:00:00 [facility] [id number] Surgical [id number] Specialti [id number] es [address] 2019-09-13 2019-09-13 [place] [facility] [id number] 00:00:00 00:00:00 [facility] [id number] Surgical [id number] Specialti [id number] [address] 2019-09-08 2019-09-08 [place] [facility] [id number] 00:00:00 00:00:00 [facility] [id number] Surgical [id number] Specialti [id number] [address] 2015-05-02 2015-05-03 Outpatient Bryn [facility] [id number] 21:33:00 06:36:00 Derrek Montalvo Results Test Description Test Time Test Comments Results Result Comments Source CHEM PANEL 2015-05-03 75 [facility] Nancy mitchell 03:01:00 CHEM PANEL 2015-05-03 [...] [facility] Nancy nn 03:01:00 [facility]OLOG[facility] HEM[facility] 2015-05-03 03:01:00 Test Item Value Reference Range Interpretation Comme nts MCH (test code = MCH) 30.9 pg 27.0-31.0 [facility] [id number] 03:01:[facility] 2015-05-03 03:01:0095.0[facility] [id number] 03:01:0014.6[facility] PzsccmjCJKREIATQE3417-86-73 03:01:0044.9[facility]orial [id number] 03:01:17730Ehlrqygd XihtkakXKVUQDCTZF9053-66-78 03:01:009.6[facility] [place] QAMGCBGOQU7723-11-83 03:01:0014.9[facility] HrbdydiMEWFJAQJKS8311-83-21 03:01:00 4.73[facility] [id number] 03:01:007.5[facility] 2015-05-03 03:01:000.87[facility] [id number] 03:01:00 Test Item Value Reference Range Interpretation Comments PTT (test code = PTT) 30.9 s 22.9-35.8 [facility] [id number] 03:01:00 Test Item Value Reference Range Interpretation Comments PT (test code = PT) 12.1 s 12.0-14.7 [facility] [id number] 03:01:00Negative (05/02/15 10:01 PM)[facility]
--- NOTE | 2020-05-11 18:48 | ER ---
Nurse's Notes [facility] [place] Name: Lazaro Rivers Age: 60 yrs Sex: Male : 1960 Arrival Date: 05/11/2020 Time: 17:10 Bed 5 Private MD: Diagnosis: Epistaxis-Left nare Presentation: 05/11 17:16 Chief complaint: Patient states: Nose bleed for 1 day, tried rhino rocket at Dr. pankaj Garcia's office, sent him for further eval. Coronavirus screen: Client denies travel out of the [place] in the last 14 days. At this time, the client does not indicate any symptoms associated with coronavirus-19. Ebola Screen: Patient denies travel to an Ebola-affected area in the 21 days before illness onset. Initial Sepsis Screen: Does the patient meet any 2 criteria? No. Patient's initial sepsis screen is negative. Risk Assessment: Do you want to hurt yourself or someone else? Patient reports no desire to harm self or others. Onset of symptoms was May 11, 2020. 17:16 Method Of Arrival: Ambulatory [facility] 17:16 Acuity: REY 3 [facility] 19:33 Initial Sepsis Screen: Does the patient have a suspected source of infection? No. lp1 Patient's initial sepsis screen is negative. Historical: - Allergies: 17:20 No Known Drug Allergies; ll1 - PMHx: 17:20 Hypertension; Thyroid problem; 1 - PSHx: 17:20 Heart stents; ll1 - Immunization history:: Flu vaccine is not up to date. - Social history:: Smoking status: Patient/guardian denies using tobacco, but has a distant history of tobacco abuse. Screenin:00 Abuse screen: Denies threats or abuse. Denies injuries from another. Nutritional hb screening: No deficits noted. Tuberculosis screening: No symptoms or risk factors identified. Fall Risk None identified. Assessment: 18:00 General: Appears in no apparent distress. Behavior is calm, cooperative. Pain: Denies hb pain. Neuro: Level of Consciousness is awake, alert, obeys commands, Oriented to person, place, time, situation. Cardiovascular: Capillary refill < 3 seconds Patient's skin is warm and dry. Respiratory: Airway is patent Respiratory effort is even, unlabored, Respiratory pattern is regular, symmetrical. GI: No signs and/or symptoms were reported involving the gastrointestinal system. : No signs and/or symptoms were reported regarding the genitourinary system. EENT: nose clip in place. Derm: Skin is pink, warm \T\ dry. Musculoskeletal: No signs and/or symptoms reported regarding the musculoskeletal system. 18:12 Reassessment: Dr Santiago at bedside. sv 19:31 Reassessment: Patient appears in no apparent distress at this time. Patient is alert, lp1 oriented x 3, equal unlabored respirations, skin warm/dry/pink. OR nurse at bedside for transport to surgery; report given to Judy Quinn RN. Vital Signs: 17:16 BP 146 / 106; Pulse 83; Resp 18; Temp 98.2; Pulse Ox 99% ; Pain 8/10; ll1 19:31 BP 155 / 89; Pulse 66; Resp 18; Pulse Ox 98% ; Pain 0/10; lp1 ED Course: 17:10 Patient arrived in ED. ds1 17:19 Triage completed. ll1 17:21 Arm band placed on Patient placed in an exam room, on a stretcher. ll1 17:31 Gonzales Sanford MD is Attending Physician. kdr 18:00 Patient has correct armband on for positive identification. Bed in low position. Call hb light in reach. 18:18 Kathryn Mathews RN is Primary Nurse. hb 18:33 Initial lab(s) drawn, by wy. Inserted saline lock: 20 gauge in right antecubital area, mh5 using aseptic technique. Blood collected. 18:34 Warm blanket given. Pulse ox on. NIBP on. mh5 18:47 Eda Santiago MD is Hospitalizing Provider. kdr 19:33 No provider procedures requiring assistance completed. Patient admitted, IV remains in lp1 place. Administered Medications: No medications were administered Outcome: 18:48 Decision to Hospitalize by Provider. kdr 19:33 Admitted to OR accompanied by nurse, via stretcher, with chart. lp1 19:33 Condition: stable 19:33 Instructed on the need for admit. 19:34 Patient left the ED. lp1 Signatures: Eda Fontana RN RN Gonzales Sanford MD MD [facility] Elidia Tobin ds1 Jade Choi RN RN 1 Kathryn Mathews RN RN hb Martinez, Maria 5 Maranda Richardson, RN RN ll1
--- NOTE | 2020-05-11 18:49 | EDPHYS ---
Physician Documentation [facility] Name: Lazaro Rivers Age: 60 yrs Sex: Male : 1960 Arrival Date: 05/11/2020 Time: 17:10 Bed 5 Private MD: ED Physician Gonzales Sanford HPI: 05/11 17:58 This 60 yrs old Male presents to ER via Ambulatory with complaints of Nose kdr Bleed. 17:58 The patient presents with a nose bleed, that is apparently anterior, from the left kdr nare, occurred from an unknown cause. Onset: The symptoms/episode began/occurred gradually, 1 week(s) ago. Modifying factors: The symptoms are alleviated by pressure, the symptoms are aggravated by blowing nose. Associated signs and symptoms: The patient has no apparent associated signs or symptoms. Severity of symptoms: At their worst the symptoms were mild moderate just prior to arrival, in the emergency department the symptoms have improved markedly, The patient has a nasal clamp on and with no apparent bleeding at this time. The patient has experienced similar episodes in the past, multiple times, and the symptoms today are exactly the same. The patient has not recently seen a physician. Historical: - Allergies: 17:20 No Known Drug Allergies; ll1 - PMHx: 17:20 Hypertension; Thyroid problem; ll1 - PSHx: 17:20 Heart stents; ll1 - Immunization history:: Flu vaccine is not up to date. - Social history:: Smoking status: Patient/guardian denies using tobacco, but has a distant history of tobacco abuse. ROS: 17:58 Constitutional: Negative for fever, chills, and weight loss, Eyes: Negative for injury, kdr pain, redness, and discharge, Neck: Negative for injury, pain, and swelling. 17:58 ENT: Positive for nose bleed, Negative for nasal discharge, rhinorrhea, sinus congestion. Exam: 17:58 Constitutional: This is a well developed, well nourished patient who is awake, alert, kdr and in no acute distress. Head/Face: Normocephalic, atraumatic. Eyes: Pupils equal round and reactive to light, extra-ocular motions intact. Lids and lashes normal. Conjunctiva and sclera are non-icteric and not injected. Cornea within normal limits. Periorbital areas with no swelling, redness, or edema. Neck: Trachea midline, no thyromegaly or masses palpated, and no cervical lymphadenopathy. Supple, full range of motion without nuchal rigidity, or vertebral point tenderness. No Meningismus. Chest/axilla: Normal chest wall appearance and motion. Nontender with no deformity. No lesions are appreciated. Cardiovascular: Regular rate and rhythm with a normal S1 and S2. No gallops, murmurs, or rubs. Normal PMI, no JVD. No pulse deficits. Respiratory: Lungs have equal breath sounds bilaterally, clear to auscultation and percussion. No rales, rhonchi or wheezes noted. No increased work of breathing, no retractions or nasal flaring. Abdomen/GI: Soft, non-tender, with normal bowel sounds. No distension or tympany. No guarding or rebound. No evidence of tenderness throughout. Back: No spinal tenderness. No costovertebral tenderness. Full range of motion. Skin: Warm, dry with normal turgor. Normal color with no rashes, no lesions, and no evidence of cellulitis. MS/ Extremity: Pulses equal, no cyanosis. Neurovascular intact. Full, normal range of motion. Neuro: Awake and alert, GCS 15, oriented to person, place, time, and situation. Cranial nerves II-XII grossly intact. Motor strength 5/5 in all extremities. Sensory grossly intact. Cerebellar exam normal. Normal gait. Psych: Awake, alert, with orientation to person, place and time. Behavior, mood, and affect are within normal limits. 17:58 ENT: Nose: Nasal septum: is midline, Nasal mucosa: cracked, Dried blood. Turbinates: are swollen bilaterally, Mouth: is normal. Vital Signs: 17:16 BP 146 / 106; Pulse 83; Resp 18; Temp 98.2; Pulse Ox 99% ; Pain 8/10; ll1 19:31 BP 155 / 89; Pulse 66; Resp 18; Pulse Ox 98% ; Pain 0/10; lp1 MDM: 17:58 Data reviewed: vital signs, nurses notes, lab test result(s), radiologic studies. kdr 18:48 Patient medically screened. kdr 05/11 18:28 Order name: IV Saline Lock; Complete Time: 18:35 sv Administered Medications: No medications were administered Disposition: 05/11/20 18:48 Hospitalization ordered by Eda Santiago for Observation. Preliminary diagnosis is Epistaxis - Left nare. - Bed requested for Operating Room. - Status is Observation. lp1 - Condition is Fair. - Problem is an ongoing problem. - Symptoms have improved. Signatures: Eda Fontana, RN RN Gonzales Sanford MD MD kdr Jade Choi RN RN lp1 Maranda Richardson RN RN ll1 Corrections: (The following items were deleted from the chart) 19:34 18:48 Hospitalization Ordered by Eda Santiago MD for Observation. Preliminary lp1 diagnosis is Epistaxis - Left nare. Bed requested for Operating Room. Status is Observation. Condition is Fair. Problem is an ongoing problem. Symptoms have improved. kdr
[2020-05-11] MEDS ORDERED: OXYMETAZOLINE HCL 0.05% 15ML NAS ONE (19:14)
[2020-05-11] MEDS ORDERED: NA CHLORIDE 0.9% 0 ML ONE (19:15)
[2020-05-11] MEDS ORDERED: LIDOCAINE 1% W/EPI 1:100,000 MDV 20 ML VIAL ONE (19:15)
[2020-05-11] MEDS ORDERED: EPINEPHRINE/PF 1 MG/ML AMP ONE (19:15)
[2020-05-11] MEDS: Ringers Lactate 1,000 ML IV ONE ×2 (19:55→20:12)
[2020-05-11] MEDS ORDERED: propofoL 200 MG/20 ML VIAL IV ONE (20:01)
[2020-05-11] MEDS ORDERED: LIDOCAINE 1% MPF 5 ML VIAL ONE (20:01)
[2020-05-11] MEDS ORDERED: MIDAZOLAM HCL 2 MG/2 ML INJ ONE (20:01)
[2020-05-11] MEDS ORDERED: dexAMETHasone 4 MG/ML VIAL ONE (20:01)
[2020-05-11] MEDS ORDERED: GLYCOPYRROLATE 0.2 MG/ML SYR ONE ×2 (20:01)
[2020-05-11] MEDS ORDERED: ROCURONIUM 50 MG/5 ML VIAL IV ONE (20:02)
[2020-05-11] MEDS ORDERED: NEOSTIGMINE 1 MG/ML -5 ML ONE (20:02)
[2020-05-11] MEDS ORDERED: FENTANYL CITR 100 MCG/2 ML ONE (20:03)
[2020-05-11] MEDS ORDERED: MORPHINE 10 MG/ML VIAL ONE (20:03)
[2020-05-11] MEDS ORDERED: KETOROLAC 30 MG/ML INJ ONE (20:03)
[2020-05-11] MEDS ORDERED: ONDANSETRON 4 MG/2 ML VIAL ONE (20:03)
--- NOTE | 2020-05-11 21:00 | P.BOP ---
Preoperative diagnosis: recurrent left severe nose bleed Postoperative diagnosis: same Primary procedure: NE with control of epistaxis Rfid Specialist: NONE,NONE Estimated blood loss: <5ml Specimen: none Findings: Left midseptum site of bleeding cauterized Anesthesia: General Complications: None Implants: Xerogel dissolvable nasal dressing Fluids & blood products: crystalloid 800ml Transferred to: Recovery Room Condition: Good
[2020-05-11 23:02] VITALS: BP 140/90; TEMP 98; O2SAT 96
--- NOTE | 2020-05-14 09:19 | OP ---
Date of Procedure: 05/11/2020 Surgeon: Eda Santiago MD Preoperative Diagnosis: Recurrent severe epistaxis. Postoperative Diagnosis: Recurrent severe epistaxis. Procedure: Nasal endoscopy with control of epistaxis. Indication For Procedure: Lazaro Rivers is a 60-year-old with a history of cardiovascular disease, ma intained on Plavix and aspirin after coronary stent placement a few years ago. He started having sev ere left-sided nosebleeds approximately 3 weeks ago. He was evaluated in the [facility] Emergency Room and discharged home without intervention. He was then seen on May 04 at the [facility] ER and deferred Rhino Rocket placement and was discharged. He subsequently had moderate to severe noseblee d on the way to his clinic appointment on May 09. At that time, he was treated by me in the ENT clinic with silver nitrate cauterization and packing with dissolvable materials. He did well for approximately 48 hours and began to develop recurrence of nosebleed on the afternoon of May 11. He had previously discontinued his aspirin and Plavix on the advice of his primary care physicia n. Due to the severity and frequent recurrences of his severe nosebleed, a recommendation was made t o proceed to the operating room for definitive electrocauterization or other indicated procedures. T he risks, benefits, and alternatives to the procedure were discussed with the patient and his . Description Of Procedure: The patient was brought to the operating room. He was placed under genera l anesthesia via oral endotracheal tube. The head of bed was turned 90 degrees. The nasal hairs wer e trimmed and the 0-degree endoscope was used to examine his nasal cavities. The right nasal cavity mucosa was significantly edematous with copious clear thick mucus. After suctioning the inferior tur binate, middle turbinate, middle meatus, septum, sphenoethmoid recess, and nasopharynx all appeared c lear from any source of bleeding. The left side was then examined. The previously placed Gelfoam pa cking was soaked in blood and was removed. The endoscope was used to perform a thorough examination of the nasal cavity. Again, the superior turbinate, nasopharynx, sphenoid ethmoid recess, middle tur binate, middle meatus, and inferior turbinates all appeared without significant source of bleeding. The previously noted area of irritation and bleeding on the mid left septum was noted to be the prima ry source of bleeding as best I could determine. The area was treated with suction Bovie cautery wit h good control of bleeding. The nose was then thoroughly suctioned. The Xerogel dissolvable sinus d ressing was placed within the left nasal cavity and soaked with saline in accordance with manufacture r's instructions. The endoscope and suction were used again to suction the nasopharynx from the cont ralateral side and ensured adequate evacuation of secretions. The patient was then returned to care of Anesthesia for awakening, extubation in the operating room, which proceeded without difficulty. T he patient was transported to the recovery room without incident. Disposition: The patient will be discharged home in the care of his . He is strictly cautioned regarding nasal precautions including no nose blowing, no heavy lifting, cautious use of CPAP. I rec ommend he continue to hold his anti-platelet medications over the weekend. He is scheduled to see ks s manager internship on Thursday. If he has no bleeding over the weekend, I would recommend he resume use of 81 mg aspirin use and continue to hold the Plavix until the site of nasal bleeding is well healed, w hich I would anticipate over approximately a 14-day period. He is also instructed to use nasal salin e in order to clean and moisturize the nose and promote healing. Disposition, the patient can follow up with Dr. Santiago in 2 weeks and can call the office to arrange an appointment. ALDO Voice ID: [id number] Report ID: [id number]
--- OUTSIDE RECORDS SUMMARY | 2020-05-24 19:58 | XMS REPORT | Continuity of Care Document ---
:1960 Author Organization [employer] [employer] Care Team Providers Name Role Phone [facility] [employer] Unavailable Un available Problems Problem Status Onset Classification Date Comments Sourc e Date Reported Discharge 05/06/2015 [facility] Diagnosis: [facility] fracture of L4 lumbar vertebra Discharge 05/06/2015 [facility] Diagnosis: 5 [facility] fracture of [...] 10 MG acetaminophe Oral Tablet n. (Same [[place] 10/325] as: [place] 325/10) Acetaminophen 1 tab, Inactive Richard 325 MG / Route: PO, 015 Medical Hydrocodone Drug Form: Center Bitartrate 10 MG TAB, Dosing Oral Tablet Weight [[place] 10/325] 106.818, kg, ONCE, STAT, Start date: 05/03/15 3:35:00, Stop date: 05/03/15 3:35:00 Ondansetron Notes: (Same Inactive [facility] as as: Zofran) 015 [facility] Center MEDICATION WASTE Product Size: 4 mg Product Wasted: ___ mg Morphine Notes: (Same Inactive [facility] as:MORPhine 015 Medical Sulfate) Center Morphine 4 mg, Route: Inactive [facility] IVP, ONCE, 015 Medical Dosing Center Weight [...] Chloride Lvl 106 95 - 109 05/03 [facility] CHEM PANEL Creatinine 1.1 0.5 - 1.4 05/03 [facility] CHEM PANEL Sodium Lvl 140 135 - 145 05/[address] [facility] CHEM PANEL Calcium Lvl 8.8 8.5 - 10.5 05/03 [facility] CHEM PANEL Potassium Lvl 4.2 3.5 - 5.1 05/[place] [facility] CHEM PANEL CO2 26 24 - 32 05/[address] [facility] CHEM PANEL BUN 19 7 - 22 05/[address] [facility] CHEM PANEL Glucose Lvl 92 70 - 99 05/[address] [facility] CHEM PANEL AST 16 0 - 37 05/[address] [facility] CHEM PANEL Bili Total 0.2 0.2 - 1.3 05/[address] [facility] CHEM PANEL Alk Phos 77 39 - 136 05/[address] [facility] CHEM PANEL Albumin Lvl 3.7 3.5 - 5.0 05/[address] [facility] CHEM PANEL Total Protein 7.2 6.4 - 8.4 05/[address] [facility] CHEM PANEL ALT 24 0 - 65 05/[address] [facility] CHEM PANEL B/C Ratio 17 6 - 25 05/[address] [facility] CHEM PANEL AGAP 12.2 10.0 - 05/[address] [facility] CHEM PANEL Globulin 3.5 2.0 - 4.0 05/[address] [facility] CHEM PANEL A/G Ratio 1.1 0.7 - 1.6 05/[address] [facility] CHEM PANEL Lactic Acid 0.9 0.5 - 2.2 05/[address] [facility] HEMATOLOGY Eosinophils # 0.2 0.0 - 0.5 05/[address] [facility] HEMATOLOGY Basophils # 0.1 0.0 - 0.2 05/[address] [facility] HEMATOLOGY Monocytes # 0.8 0.0 - 0.8 05/[address] [facility] HEMATOLOGY Segs-Bands # 4.3 1.5 - 8.1 05/[address] [facility] HEMATOLOGY Lymphocytes # 2.2 1.0 - 5.5 05/[address] [facility] HEMATOLOGY Segs 56.5 45.0 - 05/03 [place] 75.[address] [facility] HEMATOLOGY Lymphocytes 29.8 20.0 - 05/03 [place] 40.[address] [facility] HEMATOLOGY Monocytes 10.1 2.0 - 12.0 05/[address] [facility] HEMATOLOGY Eosinophils 2.5 0.0 - 4.0 05/[address] [facility] HEMATOLOGY Basophils 1.1 0.0 - 1.0 05/[address] [facility] HEMATOLOGY MCH 30.9 27.0 - 05/03 [place] 31.[address] [facility] HEMATOLOGY MCHC 32.5 32.0 - 05/03 [place] 36.0 /[address] [facility] HEMATOLOGY MCV 95.0 80.0 - 05/03 [place] 94.0 /[address] [facility] HEMATOLOGY Hgb 14.6 14.0 - 05/03 [place] 18.0 /[address] [facility] HEMATOLOGY Hct 44.9 42.0 - 05/03 [place] 54.0 /[address] [facility] HEMATOLOGY Platelet 176 133 - 450 05/03 /[address] [facility] HEMATOLOGY MPV 9.6 7.4 - 10.4 05/03 /[address] [facility] HEMATOLOGY RDW 14.9 11.5 - 05/03 [facility] 14.5 /[address] [facility] HEMATOLOGY RBC 4.73 4.70 - 05/03 [place] 6.10 /[address] [facility] HEMATOLOGY WBC 7.5 3.7 - 10.4 05/03 /[address] [facility] HEMATOLOGY INR 0.87 0.85 - 05/03 [place] 1.17 /[address] [facility] HEMATOLOGY PTT 30.9 22.9 - 05/03 [place] 35.8 /[address] [facility] HEMATOLOGY PT 12.1 12.0 - 05/03 [facility] 14.7 /[address] [facility] IMMUNOLOGY CDC HIV 4th Negative Negative 05/03 [facility] (05/02/15 10:01 PM) /[facility] Pathology Reports No Data Provided for This Section Diagnostic Reports Report Value Date Source Spine lumbar wo MRI OF THE LUMBAR SPINE 05/02/2015 [facility] Center DATE: 05/02/2015 at 11:39 p.m. Comparison studies: CT 2014 at 11:15 p.m., outside imaging from [facility] CT lumbar spine 05/02/2015 at [...] lumbar wo EXAM: LUMBAR SPINE CT 05/02/2015 [facility] Center DATE: May 02, 2015 11:17:00 [...] Source Temperature Oral (F) 97.9 F 05/03/2015 [facility] Heart Rate 56 05/03/2015 [facility] Systolic (mm Hg) 150 05/03/2015 [facility] Diastolic (mm Hg) 77 05/03/2015 [facility] Respitory Rate 18 05/03/2015 [facility] Heart Rate 72 05/03/2015 [facility] Systolic (mm Hg) 130 05/03/2015 [facility] Diastolic (mm Hg) 74 05/03/2015 [facility] Respitory Rate 16 05/03/2015 [facility] Systolic (mm Hg) 138 05/03/2015 [facility] Diastolic (mm Hg) 73 05/03/2015 [facility] Respitory Rate 16 05/03/2015 [facility] Heart Rate 66 05/03/2015 [facility] Weight 106.818 05/03/2015 [facility] BMI Calculated 31.94 05/03/2015 [facility] Height 182.88 cm 05/03/2015 [facility] Temperature Oral (F) 98.9 F 05/03/2015 [facility] Encounters Location Location Encounter Encounter Reason Attending ADM DC Stat us Source Details Type Number For Provider Date Date Visit [facility] [id number] Silvano 05/03 05/03 [facility] Reyes /2014 [facility] Procedures No Data Provided for This Section Assessment and Plan No Data Provided for This Section Plan of Care No Data Provided for This Section Social History Social History Date Source Social History TypeResponse 05/03/2015 [facility] Smoking Status Current every day smoker; Type: Cigarett es; Exposure to Tobacco Smoke self; Cigarette Smoking Last 365 Days Yes; Reg Smoking Cessation Counseling Yes Family History No Data Provided for This Section Advance Directives No Data Provided for This Section Functional Status No Data Provided for This Section
--- OUTSIDE RECORDS SUMMARY | 2020-05-24 19:59 | XMS REPORT | Continuity of Care Document ---
:1960 Author Organization [facility] t Address [address] [place] [address] Care Team Providers Name Role Phone Hiram RODRIGUEZ, K.H. Attending Clinician Selvin Clemente Attending Clinician Florence Reyes Admitting Clinician Problems Condition Condition Condition Status Onset Resolution Last Treating Co mments Source Name Details Category Date Date Treatment Clinician Date L2, L4 Diagnosis Active 2015-11-13 Mem oria WEDGE 05-02 10:17:00 l COMPRESSIO L2, L4 00:00: Herm josie N FRACTURE WEDGE 00 COMPRESSIO N FRACTURE Active 05/02/2015 [facility] Discharge Problem 2015-05-06 2015-05-06 Memoria Diagnosis: 05-03 07:26:03 07:26:03 l Compressio 05:00: Avinash n n fracture Discharge 00 of L4 Diagnosis: lumbar Compressio vertebra n fracture of L4 lumbar vertebra 5 05/06/2015 [facility] Allergies, Adverse Reactions, Alerts This patient has no known allergies or adverse reactions. Social History Smoking Status Start Date Stop Date Source Social History 2015-05-03 02:42:59 Codi cuellar Medications Ordered Filled Start Stop Current Ordering Indication Dosage Frequency Signature Comments Components Source Medication Medication Date Date Medication? Clinician (SIG) Name Name 24 HR Yes 100 mg = 1 Memori a tramadol 05-03 tab, PO, l hydrochlori 10:48: Daily, # He tani de 100 MG 00 30 tab, 0 Extended Refill(s) Release Tablet Acetaminoph No Notes: Do M emoria en 325 MG / 05-03 not exceed l Hydrocodone 10:46: 4gm/day of [place] Bitartrate 00 acetaminop 10 MG Oral hen. Tablet (Same as: [[place] 10/325] 325/10) Acetaminoph No 1 tab, Juan ahsan en 325 MG / 05-03 Route: PO, l Hydrocodone 08:35: Drug Form: [place] Bitartrate 00 TAB, 10 MG Oral Dosing Tablet Weight [[place] 106.818, 10/325] kg, ONCE, STAT, Start date: 05/03/15 3:35:00, Stop date: 05/03/15 3:35:00 Ondansetron No Notes: Juan ahsan 05-03 (Same as: l 06:05: Zofran) Jayson 00 MEDICATION WASTE Product Size: 4 mg Product Wasted: ___ mg Morphine No Notes: Memoria 05-03 (Same l 06:05: as:MORPhin [place] 00 e Sulfate) Morphine No 4 mg, Memoria 05-03 Route: l 03:59: IVP, ONCE, [place] 00 Dosing Weight 106.818, kg, Priority: STAT, Start date: 05/02/15 22:59:00, Stop date: 05/02/15 22:59:00 Ondansetron No 4 mg, Memor ia 05-03 Route: l 03:59: IVP, Drug Jayson 00 form: INJ, ONCE, Dosing Weight 106.818, kg, Priority: STAT, Start date: 05/02/15 22:59:00, Stop date: 05/02/15 22:59:00 Saline No Notes: Memoria Flush 0.9% 05-03 (Same as: l 02:55: BD [place] 00 Posiflush) Vital Signs Vital Name Observation Time Observation Value Comments Source Temperature Oral (F) 2015-05-03 11:12:00 97.9 F [facility] Jayson Heart Rate 2015-05-03 11:12:00 [facility] [place] Systolic (mm Hg) 2015-05-03 11:12:00 Juan rial [place] Diastolic (mm Hg) 2015-05-03 11:12:00 Mem orial [place] Respitory Rate 2015-05-03 11:12:00 Memori al [place] Heart Rate 2015-05-03 10:00:00 [facility] [place] Systolic (mm Hg) 2015-05-03 10:00:00 Juan rial [place] Diastolic (mm Hg) 2015-05-03 10:00:00 Mem orial [place] Respitory Rate 2015-05-03 10:00:00 Memori al [place] Systolic (mm Hg) 2015-05-03 08:00:00 Juan rial [place] Diastolic (mm Hg) 2015-05-03 08:00:00 Mem orial [place] Respitory Rate 2015-05-03 08:00:00 Memori al [place] Heart Rate 2015-05-03 08:00:00 [facility] [place] Weight 2015-05-03 02:29:00 [facility] [place] BMI Calculated 2015-05-03 02:29:00 Memori al [place] Height 2015-05-03 02:29:00 182.88 cm [facility] [place] Temperature Oral (F) 2015-05-03 02:29:00 98.9 F [facility] [place] Procedures This patient has no known procedures. Encounters Start End Encounter Admission Attending Care Care Encounter Source Date/Time Date/Time Type Type Clinicians Facility Department ID 2020-05-16 2020-05-16 Telephone [place] [id number] 00:00:00 00:00:00 Shivam Fairchild [id number] [place] [id number] [place] [id number] [address] 2020-05-14 2020-05-14 [id number] 13:11:20 15:33:18 Visit Shivam Fairchild [id number] [place] [id number] P[place] [id number] [address] 2015-05-02 2015-05-03 Outpatient Bryn [facility] [id number] 21:33:00 06:36:00 Derrek Montalvo Results Test Description Test Time Test Comments Results Result Comments Source CHEM PANEL 2015-05-03 75 [facility] Nancy nn 03:01:00 CHEM PANEL 2015-05-03 106 [facility] Nancy [...] nn 03:01:00 CHEM PANEL 2015-05-03 3.5 [facility] Nanyc nn 03:01:00 CHEM PANEL 2015-05-03 1.1 [facility] [...] [facility] nn 03:01:00 HEMATOLOGY 2015-05-03 1.1 [facility] Nancy nn 03:01:00 HEMATOLOGY 2015-05-03 03:01:00 Test Item Value Reference Range Interpretation Comme nts MCH (test code = MCH) 30.9 pg 27.0-31.0 Memorial [id number] 03:01:[facility].5[facility] 2015-05-03 03:01:0095.0[facility] [id number] 03:01:0014.6[facility] [id number] 03:01:0044.9[facility]orial [id number] 03:01:32365Rohmgzui XtrktfjHXWXOQXXJV3577-65-43 03:01:009.6[facility] Jayson [id number] 03:01:0014.9[facility] KmycehjIDTEIKRFQH5722-49-18 03:01:00 4.73[facility] [id number] 03:01:007.5[facility] 2015-05-03 03:01:000.87[facility] [id number] 03:01:00 Test Item Value Reference Range Interpretation Comments PTT (test code = PTT) 30.9 s 22.9-35.8 Memorial [id number] 03:01:00 Test Item Value Reference Range Interpretation Comments PT (test code = PT) 12.1 s 12.0-14.7 Memorial [id number] 03:01:00Negative (05/02/15 10:01 PM)[facility]
--- OUTSIDE RECORDS SUMMARY | 2020-05-24 19:59 | XMS REPORT | Summary of Care ---
:1960 Author Organization [facility] - Health Address [address] [place] [id number] Care Team Providers Name Role Phone Zurdo Gandhi MD Unavailable Devante Fermin MD Unavailable Deysi Primary Care Provider Encounter Details Date Type Department Care Team Description 05/14/2020 Orders Only [facility] Doctor Unassigned, No [address] [facility] [place] [address] [address] [place] [address] Allergies No Known Allergiesdocumented as of this encounter (statuses as of 05/14/2020) Medications Medication Sig Dispensed Refills Start Date [...] 5 Coronary artery disease (five) minutes involving [place] as needed for coronary artery of Chest pain. 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 Overview: Added automatically from request for joshua darlene [id number] Sacroiliac joint dysfunction 06/16/2017 Overview: Added automatically from request for joshua darlene [id number] Chest pain due to myocardial ischemia 06/11/2017 [...] as of this encounter (statuses as of 05/14/2020) Social History Tobacco Use Types Packs/Day Years [...] Name Priority Date/Time Associated Diagnosis Comme nts CONSENT/REFUSAL FOR Routine 05/14/2020 1:10 PM CDT DIAGNOSIS AND TREATMENT documented in this encounter Results Not on filedocumented in this encounter Insurance Payer Benefit Plan / Subscriber ID Effective Dates Phone Addre ss Type Group NAFISA QUIGLEY [id number] 2019-Presen Medicare Adv PLUS PLUS t HMO CLASSIC/VALUE documented as of this encounter
--- OUTSIDE RECORDS SUMMARY | 2020-05-24 20:00 | XMS REPORT | Summary of Care ---
:1960 Author Organization [facility] Address [address] [place] [address] Care Team Providers Name Role Phone Zurdo Gandhi MD Unavailable Devante Fermin MD Unavailable Deysi Primary Care Provider Reason for Referral (Routine) Status Reason Specialty Diagnoses / Referred By Referred To Procedures Contact Contact New Request Cardiology Diagnoses Coronary artery disease involving ely shoshone coronary artery of ely shoshone heart with angina pectoris Dyslipidemia Essential hypertension Metabolic syndrome DORENE (obstructive sleep apnea) CRENSHAW (dyspnea on exertion) Shivam Gandhi Obesity, unspeci fied classification, unspecified obesity type, unspecified whether serious comorbidity present MD Zurdo Procedures ECHO ROUTINE W/DOPPLER COLOR Preferred Location: [facility] [address] [place] [address] Reason for Visit Reason Comments Follow-up Annual Ekg Done today in Office Encounter Details Date Type Department Care Team Description 05/14/2020 Office Visit [facility] Shivam Gandhi Coronary rio ry disease involving ely shoshone coronary artery of ely shoshone heart with angina pectoris (Primary Dx); Cardiology- Devorah Renner MD [facility] [address] hypertension; [address], [address] Metabolic syndrome; [place], [place] DORENE (obstructiv e sleep apnea); [id number] CRENSHAW (dyspnea on exertion); [phone] Obesity, unspecified classification, uns pecified obesity type, unspecified whether serious comorbidity present; Atypical chest pain; Epistaxis Allergies No Known Allergiesdocumented as of this encounter (statuses as of 05/14/2020) Medications Medication Sig Dispensed Refills Start End [...] Coronary artery every 5 disease involving (five) ely shoshone coronary artery minutes as of ely shoshone heart, needed for angina presence Chest pain. [...] methylPREDNISolone Take 21 1 Each 0 08/31/19 D iscontinued (MEDROL, MULU,) 4 mg tablets by 020 (Therapy tabletsIndications: mouth completed) Pain of right hand SEE-INSTRUCTI ONS. follow package directions celecoxib (CELEBREX) Take 1 180 capsule 0 03/05/20 Discontinued 200 mg capsule by 020 capsuleIndications: mouth 2 (two) Pain of right hand times daily with meals. documented as of this encounter (statuses as of 05/14/2020) Active Problems Problem Noted Date Lumbosacral spondylolysis 07/20/2017 Overview: Added automatically from request for joshua colon [id number] Sacroiliac joint dysfunction 06/16/2017 Overview: Added automatically from request for ojshua colon [id number] Chest pain due to myocardial ischemia 06/11/2017 [...] Sign Reading Time Taken Comments Blood Pressure 148/89 05/14/2020 1:21 PM CDT Pulse 57 05/14/2020 1:21 PM CDT Temperature - - Respiratory Rate 19 05/14/2020 1:18 PM CDT Oxygen Saturation 95% 05/14/2020 1:18 PM CDT Inhaled Oxygen Concentration - - Weight 129.1 kg (284 lb 9.6 oz) 05/14/2020 1:18 PM CDT Height 182.9 cm (6') 05/14/2020 1:18 PM CDT Body Mass Index 38.6 05/14/2020 1:18 PM CDT documented in this encounter Patient Instructions Patient InstructionsShivam Gandhi MD - 05/14/2020 1:00 PM CDTRestart ASA EC 81 mg daily. You will need Echocardiogram and then followed by Lexiscan Nuclear medicine test (if Echo is within acceptable limits). documented in this encounter Progress Notes Shivam Gandhi MD - 05/14/2020 1:00 PM CDT [facility] Cardiology Consult Note Patient: Lazaro Rivers Date of : 1960 Primary Care Physician: Mima Cerrato CHIEF COMPLAINT: Chief Complaint Patient presents with Follow-up Annual Ekg Done today in Office History of Present Illness: Lazaro Rivers is a 60-year-old male patient presents to the office for follow-up for underlying obstructive CAD. Patient is here by himself. Since the last office visit 12/2018, 3 weeks ago started noticing nose bleeds excessively. Saw ENT. Underwent cauterization. He had called us, we had asked to stop Plavix since he has stents 05/2017. CRENSHAW NYHA Class II. Patient reports has been having chest pain, felt like tightness in her retrosternal area, lasted forfew mins, with no clear aggravating or alleviating factors. No radiation. This has been going for last few months. Not worsening. Unable to quantify the severity of pain. No chest pain at rest. No chest pain at rest or on exertion. No PND or orthopnea. No pedal edema. Noexertional palpitations or palpitations at rest. No syncopal attacks. His cardiac risk factors include HTN, obesity, dyslipidemia, CAD, restarted smoking when his was very sick in ICU. Previous Cardiac Studies: ECG 05/14/2020 SR with narrow QRS complex. nonspecific ST changes. Cath 05/2017 INTERVENTION IMPRESSION: Successful PCI of Mid LAD with SINDI PLANS: Observation in telemetry ASA 81 mg Po daily for life Plavix 75 mg po [id number] months Findings and plans discussed with the pt and family Echocardiogram January 2016 The left ventricle is borderline dilated. There is mild concentric left ventricular hypertrophy. Ejection Fraction = 60-65%. Diastolic function is pseudonormal. The left ventricular wall motion is normal. Mild aortic regurgitation. Mild aortic root dilatation. Borderline dilated ascending aorta. Exercise stress test January 2016 Total [address]-T changes noted DSE 04/2017 Baseline ECG Normal sinus rhythm. The baseline ECG displays normal ST segments. Stress ECG Sinus tachycardia. There was no new ST segment depression. Baseline Echo Normal left ventricular systolic function. Ejection Fraction = 55-60%. No regional wall motion abnormalities. Mild AR. Stress Echo Normal left ventricular wall motion. The left ventricular cavity is small. LVEF increased to 70-75%. Apical segments hypokinetic. Interpretation Summary The study was technically adequate. Normal LV systolic function at baseline. Adequate inotropic response. Normal rest wall motion with stress-induced wall motion abnormalities consistent with ischemia in the apical wall(s). This was a positive stressechocardiogram for inducible ischemic wall motion Abnormality. PAST MEDICAL HISTORY Past Medical History: Diagnosis Date Chronic pain low back pain Colorectal polyps >5 tubular adenoma - Needs repeat Scope 06/2017 History of ETOH abuse also THC use, quit per pt Hypertension Nerve damage Obesity Vertebral compression fracture, sequela Past Surgical History: Procedure Laterality Date CAUDAL EPIDURAL STEROID INJECTION 07/15/2016 CAUDAL EPIDURAL STEROID INJECTION N/A 07/15/2016 Surgeon: Saumya Lacey MD; Location: [facility] Location COLONOSCOPY N/A 05/22/2016 Surgeon: Jean Carlos Ahuja MD; Location: [facility] OR Location COLONOSCOPY N/A 06/19/2016 Surgeon: Jean Carlos Ahuja MD; Location: [facility] OR Location DENTAL IMPLANTATIONS FACET JOINT INJECTION 05/26/2016 FACET JOINT INJECTION Bilateral 05/26/2016 Surgeon: Marcello Rocha MD; Location: [facility] Location SACROILIAC JOINT INJECTION 10/22/2016 SACROILIAC JOINT INJECTION Bilateral 10/22/2016 Surgeon: Saumya Lacey MD; Location: [facility] Location SACROILIAC JOINT INJECTION 06/29/2017 SACROILIAC JOINT INJECTION Bilateral 06/29/2017 Surgeon: Patricia Oswald MD; Location: [facility] Location SACROILIAC JOINT INJECTION 08/05/2017 SACROILIAC JOINT INJECTION Bilateral 08/05/2017 Surgeon: Marcello Rocha MD; Location: [facility] Location Family History Problem Relation Age of Onset Hypertension Father Hypertension Brother Thyroid Brother SOCIAL HISTORY Social History Socioeconomic History Marital status: Spouse name: Not on file Number of children: Not on file Years of education: Not on file Highest education level: Not on file Occupational History Not on file Social Needs Financial resource strain: Not on file Food insecurity Worry: Not on file Inability: Not on file Transportation needs Medical: Not on file Non-medical: Not on file Tobacco Use Smoking status: Current Every Day Smoker Packs/day: 1.00 Years: 40.00 Pack years: 40.00 Types: Cigarettes Smokeless tobacco: Never Used Tobacco comment: wants to quit Substance and Sexual Activity Alcohol use: No Alcohol/week: 0.0 standard drinks Comment: Former drinker - Quit in 1999 Drug use: No Sexual activity: Not on file Lifestyle Physical activity Days per week: Not on file Minutes per session: Not on file Stress: Not on file Relationships Social connections Talks on phone: Not on file Gets together: Not on file Attends jehovah's witness service: Not on file Active member of club or organization: Not on file Attends meetings of clubs or organizations: Not on file Relationship status: Not on file Intimate partner violence Fear of current or ex partner: Not on file Emotionally abused: Not on file Physically abused: Not on file Forced sexual activity: Not on file Other Topics Concern Not on file Social History Narrative He has a history of heavy EtOH consumption and also hx of driving while intoxicated and THC abuse which he stopped in 1999 after becoming more jehovah's witness. ALLERGIES No Known Allergies MEDICATIONS Patient's Medications START taking these medications No medications on file CONTINUE taking these medications which have NOT CHANGED ACETAMINOPHEN-CODEINE 300-60 MG TABLET ASPIRIN 81 MG CHEWABLE TABLET Take 1 tablet by mouth daily. ATORVASTATIN 40 MG TABLET Take 1 tablet by mouth at bedtime. DICLOFENAC SODIUM (VOLTAREN) 1 % GEL Take 2-4 grams twice a day as needed for pain GABAPENTIN 600 MG TABLET Take 1 tablet by mouth 3 (three) times daily. LEVOTHYROXINE 100 MCG TABLET LOSARTAN 50 MG TABLET Take 1 tablet by mouth daily. METOPROLOL TARTRATE 25 MG TABLET Take 0.5 [...] medications on file STOP taking these medications CELECOXIB (CELEBREX) 200 MG CAPSULE Take 1 capsule by mouth 2 (two) times daily with meals. METHYLPREDNISOLONE (MEDROL, MULU,) 4 MG TABLETS Take 21 tablets by mouth SEE- INSTRUCTIONS. followpackage directions REVIEW OF SYSTEMS: Comprehensive 10-system review was conducted and were negative except for what's noted in the HPI. The following systems were reviewed: Constitutional, cardiovascular, respiratory, gastrointestinal, genitourinary, musculoskeletal, neurologic, psychiatric, endocrinological, and hematological. PHYSICAL EXAMINATION: Vitals: 05/14/20 1318 05/14/20 1321 BP: (!) 163/90 (!) 148/89 BP Location: Left arm Patient Position: Sitting BP CUFF SIZE: Adult Large Pulse: 58 57 Resp: 19 SpO2: 95% Weight: 129.1 kg (284 lb 9.6 oz) Height: 1.829 m (6') General: no apparent distress HEENT: normocephalic atraumatic Neck: supple, no lymphadenopathy, no bruits, no JVD Lungs: clear to auscultation bilaterally. No wheezes or rhonchi. No increased work of breathing. Cardio: Regular rate and rhythm, S1&S2 normal, no murmurs, rubs or gallops Abdomen: soft; non-tender; non-distended; normoactive bowel sounds. : not examined Rectal: not examined Extremities: no clubbing, cyanosis, or edema. Skin: no rashes, no visible lesions. Neuro: no gross focal deficits LABS - Reviewed pertinent labs as below: CBC BMP PT/INR WBC (10*3/L) Date Value 06/12/2017 6.15 NA (mmol/L) Date Value 06/12/2017 137 No results found for: PT PLT (10*3/L) Date Value 06/12/2017 151 K (mmol/L) Date Value 06/12/2017 4.8 INR (no units) Date Value 06/09/2017 0.9 HGB (g/dL) Date Value 06/12/2017 13.3 BUN (mg/dL) Date Value 06/12/2017 21 HCT (%) Date Value 06/12/2017 41.6 CREATININE (mg/dL) Date Value 06/12/2017 1.02 LIPID PROFILE GLUCOSE (mg/dL) Date Value 06/12/2017 93 CHOL (mg/dL) Date Value 06/09/2017 162 TSH LDL CHOL (mg/dL) Date Value 06/09/2017 90 TSH (mIU/L) Date Value 09/15/2016 4.62 CARDIAC ENZYMES HDL (mg/dL) Date Value 06/09/2017 44 No results found for: CK TRIG (mg/dL) Date Value 06/09/2017 142 LFTs No results found for: CKMB AST(SGOT) (U/L) Date Value 06/09/2017 23 No results found for: TROPNI ALT(SGPT) (U/L) Date Value 06/09/2017 29 No results found for: BNP ASSESSMENT/PLAN 1. Coronary artery disease involving ely shoshone coronary artery of ely shoshone heart with angina pectoris EKG-12 LEAD ROUTINE ECHO ROUTINE W/DOPPLER COLOR Preferred Location: [facility] 2. Dyslipidemia EKG-12 LEAD ROUTINE ECHO ROUTINE W/DOPPLER COLOR Preferred Location: [facility] 3. Essential hypertension EKG-12 LEAD ROUTINE ECHO ROUTINE W/DOPPLER COLOR Preferred Location: [facility] 4. Metabolic syndrome EKG-12 LEAD ROUTINE ECHO ROUTINE W/DOPPLER COLOR Preferred Location: [facility] 5. DORENE (obstructive sleep apnea) EKG-12 LEAD ROUTINE ECHO ROUTINE W/DOPPLER COLOR Preferred Location: [facility] 6. CRENSHAW (dyspnea on exertion) EKG-12 LEAD ROUTINE ECHO ROUTINE W/DOPPLER COLOR Preferred Location: [facility] 7. Obesity, unspecified classification, unspecified obesity type, unspecified whether serious comorbidity present EKG-12 LEAD ROUTINE ECHO ROUTINE W/DOPPLER COLOR Preferred Location: [facility] 8. Atypical chest pain 9. Epistaxis CRENSHAW NYHA Class II: Multifactorial: Chronic diastolic HF, obesity and deconditioning. ECG done was reviewed with him. In view of symptoms of CRENSHAW NYHA Class II, recommended echo to assess for structural abnormalities interms of regional wall abnormalities, VHD, diastolic dysfunction and RV function. Based on Echo, if echo within acceptable limits, then will plan for Low level Ex Lexiscan NM Stress test. CAD: PCI 05/2017 On ASA 81 mg daily for life. Since he completed > 2.5 yrs of DAPT, stopped Plavix. Continue Lopressor 12.5 mg BiD HTN: On Losartan 50 mg daily and Lopressor 12.5 mg BiD. Home log when he comes for Echo. Home BP log recommended. Cross check his BP machine. Appropriate ways to check home BP discussed. Goals BP < 130/80 stressed. Explained if BP > 130/80, adviced to send us the log. Lifestyle modifications stressed. Dyslipidemia: on lipitor 40 mg daily. Will need labs from PCP office. LDL 65 (PCP 01/2020) Follow up in 3-4 months. Orders Placed This Encounter Procedures ECHO ROUTINE W/DOPPLER COLOR Preferred Location: [facility] Requested Prescriptions No prescriptions requested or ordered in this encounter Patient's diease process and its evaluation and treatment were discussed. We discussed each of for cardio vascular-related problems and discussed long-term goals and expectations for the each problem.I reviewed each of the cardiac medications in detail. Reviewed the medication with patient in detail recommended to continue taking the current medications without further changes. Recommended goal BP < 130/80 consistently, LDL << 70, HbA1c < 6.5. Recommended, explained and stressed the importance of healthy eating habits and exercises and lifestyle modifications Follow up as planned is predicated on symptoms stability and/or acceptable test results. Patient is urged to call in sooner should problems arise or if there is no improvement in cardiac symptoms. ER warning signs and symptoms explained and patient verbalized understanding. My diagnostic impression and treatment plans were discussed at length with the patient. All side effects as well as drug-drug interactions and risks discussed at length. Ample opportunity was offered and encouraged to ask questions during this visit and patient verbzalised statisfcation in the answersgiven. We reviewed the [place] [employer] recommendations for reduction of overall cardio vascular risk. The importance of monitoring the blood pressure carefully both at home on regular basis along with other physicians appointment was stressed in detail. In addition we discussed target LDL levels for optimal risk reduction. It was advised that to daily physical activity be performed with 30 minutes of sustained exercise for both cardio vascular fitness and improvement for generalized medical health and well-being. Coleman Gandhi MD Mathematical Technician, Division of Cardiology [facility] documented in this encounter Plan of Treatment Date Type Specialty Care Team Description 08/14/2020 Office Visit Cardiology Shivam Gandhi MD [address] [place] [address] [place] [address] [phone] Name Type Priority Associated Diagnoses Order S chedule EKG-12 LEAD ROUTINE HEART STATION Routine Coronary artery dise ase Ordered: 05/14/2020 involving ely shoshone coronary artery of ely shoshone heart with angina pectoris Dyslipidemia Essential hypert ension Metabolic syndro me DORENE (obstructive sleep apnea) CRENSHAW (dyspnea on exertion) Obesity, unspecified classification, unspecified obesity type, unspecified whether serious comorbidity present Health Maintenance Due Date Last Done Comments [...] filedocumented in this encounter Visit Diagnoses Diagnosis Coronary artery disease involving ely shoshone coronary artery of ely shoshone heart with angina pectoris - Primary Dyslipidemia Other and unspecified hyperlipidemia Essential hypertension Unspecified essential hypertension Metabolic syndrome Dysmetabolic Syndrome X DORENE (obstructive sleep apnea) Obstructive sleep apnea (adult) (pediatr ic) CRENSHAW (dyspnea on exertion) Other dyspnea and respiratory abnormalit y Obesity, unspecified classification, uns pecified obesity type, unspecified whether serious comorbidity present Atypical chest pain Other chest pain Epistaxis documented in this encounter Insurance Payer Benefit Plan / Subscriber ID Effective Dates Phone Addre ss Type Group WELL[employer] DANN WELLC[employer] DANN [id number] 2019-Presen Medicare Adv PLUS PLUS t HMO CLASSIC/VALUE documented as of this encounter
--- OUTSIDE RECORDS SUMMARY | 2020-05-24 20:00 | XMS REPORT | Summary of Care ---
:1960 Author Organization [facility] Address [address] [place] [address] Care Team Providers Name Role Phone Zurdo Gandhi MD Unavailable Devante Fermin MD Unavailable Deysi Primary Care Provider Reason for Visit Reason Comments Orders Encounter Details Date Type Department Care Team Description 05/16/2020 Telephone [facility] Cardiology- Shivam Gandhi MD Orders [place] [address] [facility], [address] [place] [address] [place] [address] [phone] Allergies No Known Allergiesdocumented as of this encounter (statuses as of 05/16/2020) Medications Medication Sig Dispensed Refills Start Date End Date Status metoprolol tartrate 25 Take 0.5 tablets 90 tablet 3 06/12/2017 Active mg tablet by mouth 2 (two) times daily. aspirin 81 mg chewable Take 1 tablet by 180 tablet 1 7 Active tablet mouth daily. atorvastatin 40 mg Take 1 tablet by 90 tablet 3 06/12/2017 Active tablet mouth at bedtime. losartan 50 mg tablet Take 1 tablet by 90 tablet 2 06/12/2017 Active mouth daily. Diclofenac Sodium Take 2-4 grams 100 g 3 07/27/2017 Active (VOLTAREN) 1 % twice a day as gelIndications: Chronic needed for pain pain of right knee nitroglycerin 0.[address] 1 tablet 30 tablet 11 07/27/2017 Active sublingual under the tongue tabletIndications: every 5 (five) Coronary artery disease minutes as involving ek[place] needed for Chest coronary artery of pain. [place] heart, angina presence unspecified gabapentin 600 mg Take 1 tablet by 90 tablet 2 10/13/2017 Active tablet mouth 3 (three) times daily. morpHINE E.R. (MS Take 1 tablet by 60 tablet 0 11/02/2017 Active CONTIN) 15 mg SR tablet mouth every 12 (twelve) hours. VARENICLINE TARTRATE Take by mouth. 0 Active (CHANTIX ORAL) acetaminophen-codeine 0 07/20/2019 Active 300-60 mg tablet levothyroxine 100 mcg 0 07/08/2019 Active tablet documented as of this encounter (statuses as of 05/16/2020) Active Problems Problem Noted Date Lumbosacral spondylolysis 07/20/2017 Overview: Added automatically from request for joshua panday [id number] Sacroiliac joint dysfunction 06/16/2017 Overview: Added automatically from request for joshua darlene [id number] Chest pain due to myocardial ischemia 06/11/2017 [...] as of this encounter (statuses as of 05/16/2020) Social History Tobacco Use Types Packs/Day Years [...] Telephone Encounter - Jade Lacey RN - 05/16/2020 11:23 AM CDTNotified patient's that I am faxing echo orders to [facility] at [phone]. However, the stress test will be ordered after Dr Gandhi gets the results of the echo. Verbalized understanding,. elephone Encounter - Micheal Gonzalez - 05/16/2020 10:59 AM CDTSOP is requesting stress test and EKG orders sent to [facility]. Patient requesting a call when paperwork is faxed over. documented in this encounter Plan of Treatment Date Type Specialty Care Team Description 08/14/2020 Office Visit Cardiology Shivam Gandhi MD [address] [place] [phone] Health Maintenance Due Date Last Done [...] ss Type Group [employer] [id number] 2019-Pres[place] Medicare Adv PLUS PLUS t HMO CLASSIC/VALUE documented as of this encounter
--- OUTSIDE RECORDS SUMMARY | 2020-05-24 20:00 | XMS REPORT | Summary of Care ---
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 Dyslipidemia Essential hypertension Metabolic syndrome DORENE (obstructive sleep apnea) CRENSHAW (dyspnea on exertion) Shivam Gandhi Obesity, unspeci fied classification, unspecified obesity type, unspecified whether serious comorbidity present MD Zurdo Procedures ECHO ROUTINE W/DOPPLER COLOR Preferred Location: [facility] [address] [place] [address] Reason for Visit Reason Comments Follow-up Annual Ekg Done today in Office Encounter Details Date Type Department Care Team Description 05/14/2020 Office Visit [facility] Shivam Gandhi Coronary rio ry disease involving northway coronary artery of northway heart with angina pectoris (Primary Dx); Cardiology- Devorah Renner MD Dys[facility]; [facility] [address] Ess[address] hypertension; [address], [address] Metabolic syndrome; [place], [place] DORENE (obstructiv e sleep apnea); [phone] CRENSHAW (dyspnea on exertion); [phone] Obesity, unspecified classification, uns pecified obesity type, [...] Coronary artery every 5 disease involving (five) northway coronary artery minutes as of northway heart, needed for angina presence Chest pain. [...] Added automatically from request for joshua colon [id number] Sacroiliac joint dysfunction 06/16/2017 Overview: Added automatically from request for joshua colon [id number] Chest pain due to myocardial ischemia 06/11/2017 [...] Gandhi MD - 05/14/2020 1:00 PM CDT [facility] Cardiology Consult Note Patient: Lazaro Rivers [...] daily for life Plavix 75 mg po months Findings and plans discussed with the [...] N/A 07/15/2016 Surgeon: Saumya Lacey MD; Location: [facility] Location COLONOSCOPY N/A 05/22/2016 Surgeon: Jean Carlos Ahuja MD; Location: [facility] OR Location COLONOSCOPY N/A 06/19/2016 Surgeon: Jean Carlos Ahuja MD; Location: [facility] OR Location DENTAL IMPLANTATIONS FACET JOINT INJECTION 05/26/2016 FACET JOINT INJECTION Bilateral 05/26/2016 Surgeon: Marcello Rocha MD; Location: [facility] Location SACROILIAC JOINT INJECTION 10/22/2016 SACROILIAC JOINT INJECTION Bilateral 10/22/2016 Surgeon: Saumya Lacey MD; Location: [facility] Location SACROILIAC JOINT INJECTION 06/29/2017 SACROILIAC JOINT INJECTION Bilateral 06/29/2017 Surgeon: Patricia Oswald MD; Location: [facility] Location SACROILIAC JOINT INJECTION 08/05/2017 SACROILIAC JOINT INJECTION Bilateral 08/05/2017 Surgeon: Marcello Rocha MD; Location: [facility] Location Family History Problem Relation Age [...] file Gets together: Not on file Attends religion service: Not on file Active member of [...] he stopped in 1999 after becoming more religion. ALLERGIES No Known Allergies MEDICATIONS Patient's Medications [...] BNP ASSESSMENT/PLAN 1. 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 Dyslipidemia EKG-12 LEAD ROUTINE ECHO ROUTINE W/DOPPLER COLOR Preferred Location: [facility] 3. Essential hypertension EKG-12 LEAD ROUTINE ECHO ROUTINE W/DOPPLER COLOR Preferred Location: [facility] 4. Metabolic syndrome EKG-12 LEAD ROUTINE ECHO ROUTINE W/DOPPLER COLOR Preferred Location: [facility] 5. DORENE (obstructive sleep apnea) EKG-12 LEAD ROUTINE ECHO ROUTINE W/DOPPLER COLOR Preferred Location: [facility] 6. CRENSHAW (dyspnea on exertion) EKG-12 LEAD ROUTINE ECHO ROUTINE W/DOPPLER COLOR Preferred Location: [facility] 7. Obesity, unspecified classification, unspecified obesity type, unspecified whether serious comorbidity present EKG-12 LEAD ROUTINE ECHO ROUTINE W/DOPPLER COLOR Preferred Location: [facility] 8. Atypical chest pain 9. Epistaxis [...] Procedures ECHO ROUTINE W/DOPPLER COLOR Preferred Location: [facility] Requested Prescriptions No prescriptions requested or [...] statisfcation in the answersgiven. We reviewed the [place] [employer] recommendations for reduction of overall [...] medical health and well-being. Coleman Gandhi MD Etl Analyst, Division of Cardiology [facility] documented in this encounter Plan of Treatment Date Type Specialty Care Team Description 08/14/2020 Office Visit Cardiology Shivam Gandhi MD [address] [place] [address] [place] [address] [phone] Name Type Priority Associated Diagnoses Order S chedule EKG-12 LEAD ROUTINE HEART STATION Routine Coronary artery dise ase Ordered: 05/14/2020 involving northway coronary artery of northway heart with angina pectoris Dyslipidemia Essential hypert [...] Visit Diagnoses Diagnosis 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
== END 2020-05-11 23:47 | disposition home or self-care (01) ==
LOC: DS 17:08 → ER 17:08 → DS 23:47
PROVIDERS: ATTEND Emergency Medicine
PROC: 093K8ZZ Control Bleeding in Nasal Mucosa and Soft Tissue, Via Natural or Artificial Opening Endoscopic (ICD-10-PCS; principal; 2020-05-11 19:30)
DX: R04.0 Epistaxis (principal); H90.3 Sensorineural hearing loss, bilateral; I25.10 Atherosclerotic heart disease of native coronary artery without angina pectoris; I10 Essential (primary) hypertension; K21.9 Gastro-esophageal reflux disease without esophagitis; E03.9 Hypothyroidism, unspecified; E66.9 Obesity, unspecified; G89.29 Other chronic pain; G62.9 Polyneuropathy, unspecified; F17.210 Nicotine dependence, cigarettes, uncomplicated; Z95.5 Presence of coronary angioplasty implant and graft; Z79.02 Long term (current) use of antithrombotics/antiplatelets; Z79.82 Long term (current) use of aspirin; Z82.49 Family history of ischemic heart disease and other diseases of the circulatory system
CPT/HCPCS: 99285; 31238; J2704; J2250; J3010; J2710; J7120; J2405; J0171; J7050

== ENCOUNTER 2020-12-20 14:28 | Emergency (ER) | payer OTHER ==
--- OUTSIDE RECORDS SUMMARY | 2020-12-20 14:32 | XMS REPORT | Continuity of Care Document ---
:1960 Author Organization [facility] t Address [address] [place] [address] Care Team Providers Name Role Phone Gurpreet Vaughn Attending Clinician Hiram RODRIGUEZ, K.H. Attending Clinician Selvin Clemente Attending Clinician Florence Reyes Admitting Clinician Problems Condition Condition Condition Status Onset Resolution Last Treating Co mments Source Name Details Category Date Date Treatment Clinician Date L2, L4 Diagnosis Active 2015-11-13 Mem oria WEDGE 05-02 10:17:00 l COMPRESSIO L2, L4 00:00: Anita galindo N FRACTURE WEDGE 00 COMPRESSIO N FRACTURE Active 05/02/2015 [facility] History of Past Illness Condition Condition Condition Status Onset Resolution Last Treating Co mments Source Name Details Category Date Date Treatment Clinician Date Discharge Problem 2015-05-06 2015-05-06 Memoria Diagnosis: 05-03 07:26:03 07:26:03 l Compressio 05:00: Avinash n n fracture Discharge 00 of L4 Diagnosis: lumbar Compressio vertebra n fracture of L4 lumbar vertebra 5 05/06/2015 [facility] Allergies, Adverse Reactions, Alerts This patient has no known allergies or adverse reactions. Social History Smoking Status Start Date Stop Date Source Social History 2015-05-03 02:42:59 [facility] Medications Ordered Filled Start Stop Current Ordering [...] not exceed l Hydrocodone 10:46: 4gm/day of [place] Bitartrate 00 acetaminop 10 MG Oral hen. Tablet (Same as: [[place] 10/325] 325/10) Acetaminoph No 1 tab, Juan ahsan en 325 MG / 05-03 Route: PO, l Hydrocodone 08:35: Drug Form: Jayson Bitartrate 00 TAB, 10 MG Oral Dosing Tablet Weight [[place] 106.818, 10/325] kg, ONCE, STAT, Start date: 05/03/15 3:35:00, Stop date: 05/03/15 3:35:00 Ondansetron No Notes: Juan ahsan 05-03 (Same as: l 06:05: Shyannefrlatrice) Jayson 00 MEDICATION WASTE Product Size: 4 mg Product Wasted: ___ mg Morphine No Notes: Memoria 05-03 (Same l 06:05: as:MORPhin Jayson 00 e Sulfate) Morphine No 4 mg, [...] Oral (F) 2015-05-03 11:12:00 97.9 F [facility] [place] Heart Rate 2015-05-03 11:12:00 [facility] [place] Systolic (mm Hg) 2015-05-03 11:12:00 Juan rial [place] Diastolic (mm Hg) 2015-05-03 11:12:00 Mem orial [place] Respitory Rate 2015-05-03 11:12:00 Memori al [place] Heart Rate 2015-05-03 10:00:00 [facility] [place] Systolic (mm Hg) 2015-05-03 10:00:00 Juan rial [place] Diastolic (mm Hg) 2015-05-03 10:00:00 Mem orial [place] Respitory Rate 2015-05-03 10:00:00 Memori al [place] Systolic (mm Hg) 2015-05-03 08:00:00 Juan rial [place] Diastolic (mm Hg) 2015-05-03 08:00:00 Mem orial [place] Respitory Rate 2015-05-03 08:00:00 Memori al [place] Heart Rate 2015-05-03 08:00:00 [facility] [place] Weight 2015-05-03 02:29:00 [facility] [place] BMI Calculated 2015-05-03 02:29:00 Memori al [place] Height 2015-05-03 02:29:00 182.88 cm [facility] [place] Temperature Oral (F) 2015-05-03 02:29:00 98.9 F [facility] [place] Procedures This patient has no known procedures. Encounters Start End Encounter Admission Attending Care Care Encounter Source Date/Time Date/Time Type Type Clinicians Facility Department ID 2020-10-26 2020-10-26 Shahbaz Raymond [facility] [id number] 00:00:00 00:00:00 [facility] [id number] Surgical [id number] Specialti [id number] es 198 Devorah 2020-06-18 2020-06-18 [facility]phone [facility] [id number] 00:00:00 00:00:00 Shivam Fairchild [id number] [place] [id number] Professio [id number] [facility] 2020-06-01 2020-06-01 Telephone Hiram [facility] [id number] 00:00:00 00:00:00 Shivam ThangBharatiTamirBharati Fairchild [id number] [place] [id number] german [id number] [facility] 2015-05-02 2015-05-03 [facility]n [facility] [id number] 21:33:00 06:36:00 Derrek Antonina Selvin Results Test Description Test Time Test Comments [...] code = MCH) 30.9 pg 27.0-31.0 [facility] [id number] 03:01:[facility].5[facility] 2015-05-03 03:01:0095.0[facility] [id number] 03:01:0014.6[facility] [id number] 03:01:0044.9[facility] AyifcoxVAQLWEGXEF1108-05-44 03:01:97120Dndwqzfo YftlfwwTBZKOQQFUJ0759-45-20 03:01:009.6[facility] Jayson QDOCCBSNAV4043-09-98 03:01:0014.9[facility] PapepniPLAVFNSMEV2063-18-87 03:01:00 4.73[facility] [id number] 03:01:007.5[facility] 2015-05-03 03:01:000.87[facility] ZfnqcjdHMSWZRVFLE5692-95-66 03:01:00 Test Item Value Reference Range Interpretation Comments PTT (test code = PTT) 30.9 s 22.9-35.8 Memorial [id number] 03:01:00 Test Item Value Reference Range Interpretation Comments PT (test code = PT) 12.1 s 12.0-14.7 Memorial [id number] 03:01:00Negative (05/02/15 10:01 PM)[facility]
[2020-12-20] MEDS ORDERED: LIDOCAINE 1% MPF 5 ML VIAL ONE (15:22)
[2020-12-20] MEDS ORDERED: BUPIVACAINE 0.5% PF 10 ML VIAL ONE (15:22)
--- NOTE | 2020-12-20 16:11 | RAD REPORT ---
EXAM DESCRIPTION: RAD - Finger-Thumb Left - 12/20/2020 3:51 pm CLINICAL HISTORY: Finger laceration FINDINGS: No fracture or dislocation seen
--- NOTE | 2020-12-20 16:41 | EDPHYS ---
Physician Documentation [facility] Name: Lazaro Rivers Age: 60 yrs Sex: Male : 1960 Arrival Date: 12/20/2020 Time: 14:30 Bed 13 Private MD: ED Physician Art Mejia HPI: 12/20 14:55 This 60 yrs old Male presents to ER via Ambulatory with complaints of cp Laceration - Finger. 14:55 The patient or guardian reports a laceration, clean. cp 14:55 The complaints affect the dorsal aspect proximal phalanx left fourth finger. Context: cp The problem was sustained at home, resulted from knife. Onset: The symptoms/episode began/occurred yesterday, at 18:00. Associated signs and symptoms: Pertinent negatives: cyanosis distally, numbness distally. Patient reports laceration occurred from kitchen knife yesterday evening at about 1800. He cleaned and dressed wound and didn't come to ED because he didn't want to miss [facility]. Tetanus vaccine is up to date. Historical: - Allergies: 14:46 No Known Allergies; tr6 - Home Meds: 14:46 aspirin 81 mg Oral chew [Active]; gabapentin 800 mg Oral tab [Active]; metoprolol tr6 tartrate 25 mg Oral tab [Active]; Lipitor 40 mg Oral tab [Active]; losartan 50 mg Oral tab [Active]; - Immunization history:: Adult Immunizations up to date. - Social history:: Smoking status: unknown. ROS: 15:00 Skin: Positive for laceration(s), of the left ring finger. cp 15:00 Constitutional: Negative for fever. cp 15:00 Cardiovascular: Negative for chest pain. 15:00 Respiratory: Negative for cough, shortness of breath, wheezing. 15:00 Neuro: Negative for numbness, tingling. 15:00 All other systems are negative. Exam: 15:05 Constitutional: The patient appears in no acute distress, alert, awake, comfortable, cp non-toxic, well developed, well nourished. 15:05 Musculoskeletal/extremity: ROM: full active range of motion, in the left fourth finger, cp Perfusion: the extremity is normally perfused throughout, Sensation intact. Tendon exam: specific tendon testing normal through active and passive range of motion 15:05 Skin: injury, laceration(s), the wound is approximately 2.5 cm(s), of the dorsal side proximal phalanx left fourth finger, that can be described as clean, no foreign body, linear, with mild bleeding. Vital Signs: 14:39 BP 148 / 88; Pulse 82; Resp 18; Temp 98.6; Pulse Ox 99% ; tr6 14:40 BP 148 / 88; Pulse 80; Pulse Ox 98% on R/A; ap3 15:00 BP 168 / 98; Pulse 82; Pulse Ox 97% on R/A; ap3 16:12 BP 147 / 84; Pulse 61; Pulse Ox 96% on R/A; ap3 16:46 BP 156 / 74; Pulse 65; Pulse Ox 97% on R/A; ap3 Laceration: 16:35 Wound Repair of 2.5cm ( 1.0in ) subcutaneous laceration to dorsal aspect proximal cp phalanx left fourth finger. Linear shaped.. Distal neuro/vascular/tendon intact. Anesthesia: Digital block administered with 6 mls of Lido/Marcaine. Wound prep: Moderate cleansing by me, Wound irrigation by me. Skin closed with 2 5-0 Prolene using loose closure with simple sutures. Dressed with Bacitracin. Patient tolerated well. MDM: 14:42 Patient medically screened. cp 15:54 Test interpretation: by ED physician or midlevel provider: xrays of left fourth finger cp negative for fracture. 16:00 Differential diagnosis: open fracture, simple laceration, tendon injury. cp 16:34 Data reviewed: vital signs, nurses notes, radiologic studies, plain films, and as a cp result, I will discharge patient. 16:38 Counseling: I had a detailed discussion with the patient and/or guardian regarding: the cp historical points, exam findings, and any diagnostic results supporting the discharge/admit diagnosis, radiology results, the need for outpatient follow up, a family practitioner, to return to the emergency department if symptoms worsen or persist or if there are any questions or concerns that arise at home. 16:38 Response to treatment: the patient's symptoms have markedly improved after treatment, cp and as a result, I will discharge patient. 12/20 15:15 Order name: XRAY Finger-Thumb Left: left fourth finger; Complete Time: 16:18 cp 12/20 14:52 Order name: Dressing - Wound; Complete Time: 15:04 cp 12/20 14:52 Order name: Gloves, Sterile; Complete Time: 15:04 cp 12/20 14:52 Order name: Setup Suture Tray; Complete Time: 15:02 cp 12/20 16:10 Order name: Wound Care: please clean and irrigate wound; Complete Time: 17:27 cp 12/20 16:34 Order name: Splint - Finger; Complete Time: 17:27 cp 12/20 16:34 Order name: Wound dressing; Complete Time: 17:27 cp Administered Medications: 15:25 Drug: Lidocaine (1 %) 10 ml {Note: BY PROVIDER.} Volume: 5 ml; Route: Infiltration; ap3 15:25 Drug: Marcaine (bupivacaine) (0.5 %) 10 ml {Note: BY PROVIDER.} Volume: 10 ml; Route: ap3 Infiltration; Disposition: 17:00 Chart complete. 12/21 07:28 Co-signature as Attending Physician, Art Mejia MD I agree with the assessment and jose antonio plan of care. Disposition: 12/20/20 16:39 Discharged to Home. Impression: Laceration without foreign body of finger without damage to nail - Left fourth. - Condition is Stable. - Discharge Instructions: Laceration Care, Adult. - Prescriptions for Keflex 500 mg Oral Capsule - take 1 capsule by ORAL route every 8 hours for 10 days; 30 capsule. - Medication Reconciliation Form, Thank You Letter, Antibiotic Education, Prescription Opioid Use form. - Follow up: Private Physician; When: 10 - 14 days; Reason: Staple/Suture removal. - Problem is new. - Symptoms have improved. Signatures: Dispatcher [employer] Art Bejarano MD MD cha Page, Corey, PA PA cp Prokisch, Amanda, RN RN ap3 Camila Weber, RN RN tr6 Corrections: (The following items were deleted from the chart) 12/20 17:28 16:39 12/20/2020 16:39 Discharged to Home. Impression: Laceration without foreign body ap3 of finger without damage to nail - Left fourth. Condition is Stable. Forms are Medication Reconciliation Form, Thank You Letter, Antibiotic Education, Prescription Opioid Use. Follow up: Private Physician; When: 10 - 14 days; Reason: Staple/Suture removal. Problem is new. Symptoms have improved. 12/21 02:36 12/20 14:00 Skin: Positive for laceration(s), of the left ring finger, cp cp
--- NOTE | 2020-12-20 16:41 | ER ---
Nurse's Notes [facility] Name: Lazaro Rivers Age: 60 yrs Sex: Male : 1960 Arrival Date: 12/20/2020 Time: 14:30 Bed 13 Private MD: Diagnosis: Laceration without foreign body of finger without damage to nail-Left fourth Presentation: 12/20 14:39 Chief complaint: Patient states: finger laceration with siding applicator knife last night. no tr6 blood thinners. tetanus up to date. Coronavirus screen: Client denies travel out of the [place] in the last 14 days. Ebola Screen: Patient negative for fever greater than or equal to 101.5 degrees Fahrenheit, and additional compatible Ebola Virus Disease symptoms Patient denies exposure to infectious person. Patient denies travel to an Ebola-affected area in the 21 days before illness onset. Complicating Factors: There are no complicating factors for this patient. Initial Sepsis Screen: Does the patient meet any 2 criteria? No. Patient's initial sepsis screen is negative. Does the patient have a suspected source of infection? No. Patient's initial sepsis screen is negative. Risk Assessment: Do you want to hurt yourself or someone else? Patient reports no desire to harm self or others. Onset of symptoms was December 19, 2020. 14:39 Method Of Arrival: Ambulatory tr6 14:39 Acuity: REY 4 tr6 Triage Assessment: 14:47 General: Appears in no apparent distress. Behavior is. Pain: Denies pain. EENT: No tr6 deficits noted. Neuro: No deficits noted. Cardiovascular: No deficits noted. Respiratory: No deficits noted. GI: No deficits noted. Abdomen is round distended. : No deficits noted. Derm:. Musculoskeletal: No deficits noted. Injury Description: Laceration sustained to left hand. Historical: - Allergies: 14:46 No Known Allergies; tr6 - Home Meds: 14:46 aspirin 81 mg Oral chew [Active]; gabapentin 800 mg Oral tab [Active]; metoprolol tr6 tartrate 25 mg Oral tab [Active]; Lipitor 40 mg Oral tab [Active]; losartan 50 mg Oral tab [Active]; - Immunization history:: Adult Immunizations up to date. - Social history:: Smoking status: unknown. Screenin:46 Abuse screen: Denies threats or abuse. Denies injuries from another. Nutritional tr6 screening: No deficits noted. Tuberculosis screening: No symptoms or risk factors identified. Fall Risk None identified. Assessment: 14:48 Reassessment: see triage assessment. tr6 16:09 General: Appears in no apparent distress. comfortable. Pain: Complains of pain in left ap3 ring finger Pain began 1 day ago. Neuro: Level of Consciousness is awake, alert, obeys commands, Oriented to person, place, time, situation. Cardiovascular: Reports None. Respiratory: Airway is patent Respiratory effort is even, unlabored, Respiratory pattern is regular, symmetrical. GI: No signs and/or symptoms were reported involving the gastrointestinal system. : No signs and/or symptoms were reported regarding the genitourinary system. EENT: No signs and/or symptoms were reported regarding the EENT system. Injury Description: Laceration sustained to left ring finger is clean, LIGHT BLEEDING NOTED was sustained 1 day ago. is bleeding a small amount. Vital Signs: 14:39 BP 148 / 88; Pulse 82; Resp 18; Temp 98.6; Pulse Ox 99% ; tr6 14:40 BP 148 / 88; Pulse 80; Pulse Ox 98% on R/A; ap3 15:00 BP 168 / 98; Pulse 82; Pulse Ox 97% on R/A; ap3 16:12 BP 147 / 84; Pulse 61; Pulse Ox 96% on R/A; ap3 16:46 BP 156 / 74; Pulse 65; Pulse Ox 97% on R/A; ap3 ED Course: 14:30 Patient arrived in ED. ds1 14:41 Art Reveles PA is PHCP. cp 14:41 Art Mejia MD is Attending Physician. cp 14:45 Triage completed. tr6 14:46 Arm band placed on right wrist. tr6 14:46 No provider procedures requiring assistance completed. tr6 14:47 Patient has correct armband on for positive identification. Bed in low position. Call tr6 light in reach. Side rails up X 1. 15:00 Ely Cooper, LUIS ENRIQUE is Primary Nurse. ap3 16:03 XRAY Finger-Thumb Left: left fourth finger In Process Unspecified. EDMS 17:27 Patient did not have IV access during this emergency room visit. ap3 Administered Medications: 15:25 Drug: Lidocaine (1 %) 10 ml {Note: BY PROVIDER.} Volume: 5 ml; Route: Infiltration; ap3 15:25 Drug: Marcaine (bupivacaine) (0.5 %) 10 ml {Note: BY PROVIDER.} Volume: 10 ml; Route: ap3 Infiltration; Outcome: 16:39 Discharge ordered by . cp 17:27 Discharged to home ambulatory. ap3 17:27 Condition: good 17:27 Discharge instructions given to patient, Instructed on discharge instructions, follow up and referral plans. medication usage, Demonstrated understanding of instructions, follow-up care, medications, Prescriptions given X 1. 17:28 Patient left the ED. ap3 Signatures: Dispatcher [employer] EDVT Elidia Tobin ds1 Art Reveles PA PA cp Prokisch, Amanda RN RN ap3 Camila Weber RN RN tr6
[2020-12-20 17:34] VITALS: TEMP 98.6
[2020-12-20 17:39] VITALS: BP 156/74; O2SAT 97
== END 2020-12-20 17:28 | disposition home or self-care (01) ==
LOC: ER 14:28
PROC: 0JQK0ZZ Repair Left Hand Subcutaneous Tissue and Fascia, Open Approach (ICD-10-PCS; principal; 2020-12-20)
DX: S61.215A Laceration without foreign body of left ring finger without damage to nail, initial encounter (principal); W26.0XXA Contact with knife, initial encounter; Y92.009 Unspecified place in unspecified non-institutional (private) residence as the place of occurrence of the external cause; Z79.82 Long term (current) use of aspirin
CPT/HCPCS: 99283

== ENCOUNTER 2021-05-14 00:34 | Emergency (ER) | payer OTHER ==
[2021-05-14 01:43] LABS: Urine Blood 2+ (Negative); Urine Glucose Negative (Negative); Urine Protein Negative (Negative); Urine Specific Gravity 1.025 (1.005-1.030); Urine pH 6.5 (5.0-7.0)
[2021-05-14] MEDS ORDERED: NA CHLORIDE 0.9% 1,000 ML ONE (01:50)
[2021-05-14] MEDS ORDERED: HYDROMORPHONE HCL 2 MG/ML inj ONE ×2 (01:55→03:36)
[2021-05-14] MEDS ORDERED: ONDANSETRON 4 MG/2 ML VIAL ONE (02:10)
[2021-05-14] MEDS ORDERED: TAMSULOSIN 0.4 MG SR CAP ONE (02:10)
[2021-05-14 02:25] LABS: Hematocrit 44.8 % (39.6-49.0); RBC Red Blood Cell Count 4.79 M/uL (4.33-5.43)
[2021-05-14 02:26] LABS: Absolute Lymphocytes (CBC) 1.2 K/uL (0.7-4.9); Basophils % 0.4 % (0-1.3); Lymphocytes % 13.4 % (15.3-44.8); MPV 10.2 fL (7.6-11.3)
[2021-05-14 02:35] LABS: Albumin 3.9 g/dL (3.4-5.0); Bilirubin Direct 0.1 mg/dL (0-0.2); Bilirubin Total 0.4 mg/dL (0.2-1.0); Potassium 4.1 mmol/L (3.5-5.1)
[2021-05-14] MEDS ORDERED: MORPHINE 4 MG/ML SYR ONE (02:38)
--- NOTE | 2021-05-14 03:52 | ER ---
Nurse's Notes [facility] Name: Lazaro Rivers Age: 61 yrs Sex: Male : 1960 Arrival Date: 05/14/2021 Time: 00:37 Bed 30 Private MD: Diagnosis: Calculus of ureter-left Presentation: 05/14 00:40 Chief complaint: Patient states: Pt states at 2230 last night he developed a sharp pain wg to his left flank area while sitting. Pt denies any trauma or strenuous activity. Pt denies SOB, CP, N/V/D, dizziness or GI disturbance. Pt has hx of kidney stones 30 years ago. Pt was able to void earlier. Pt now reporting radiating pain into his testicles. Coronavirus screen: Vaccine status: Patient reports receiving the 2nd dose of the covid vaccine. Date April 19, 2021 At this time, the client does not indicate any symptoms associated with coronavirus-19. Ebola Screen: Patient negative for fever greater than or equal to 101.5 degrees Fahrenheit, and additional compatible Ebola Virus Disease symptoms Patient denies exposure to infectious person. Patient denies travel to an Ebola-affected area in the 21 days before illness onset. Initial Sepsis Screen: Does the patient meet any 2 criteria? No. Patient's initial sepsis screen is negative. Does the patient have a suspected source of infection? No. Patient's initial sepsis screen is negative. Risk Assessment: Do you want to hurt yourself or someone else? Patient reports no desire to harm self or others. Onset of symptoms was May 13, 2021 at 22:30. 00:40 Method Of Arrival: Ambulatory wg 00:40 Acuity: REY 3 wg Triage Assessment: 00:45 General: Appears distressed, uncomfortable, obese, Behavior is cooperative, appropriate wg for age, restless. Pain: Complains of pain in Left Flank and testicles Pain radiates to Testicles Pain currently is 10 out of 10 on a pain scale. Historical: - Allergies: 00:45 No Known Allergies; wg - PMHx: 00:45 Hypertension; Thyroid problem; wg - Immunization history:: Adult Immunizations up to date. - Social history:: Smoking status: Patient denies any tobacco usage or history of. Patient/guardian denies using alcohol, street drugs, The patient lives. - Family history:: not pertinent. Screenin:24 Abuse screen: Denies threats or abuse. Nutritional screening: No deficits noted. cc4 Tuberculosis screening: No symptoms or risk factors identified. Fall Risk None identified. Assessment: 01:24 General: Appears distressed, Behavior is cooperative, anxious. Pain: Complains of pain cc4 in abdomen and pelvis c/o left lower abd pain "10" on pain scale \\T\\ reports that pain radiates into left flank \\T\\ left testicle. Pain began 4 hours ago. Is intermittent, Alleviated by nothing. 01:30 Reassessment: No changes from previously documented assessment. Dilaudid 1 mg given IVP cc4 for c/o pain; to CT via stretcher. 03:30 Reassessment: Patient appears in no apparent distress at this time. Sleeping with cc4 snoring noted; BP improving; IV NS 1 liter infused with no s/sx's of infiltration/infection noted. Vital Signs: 00:40 BP 161 / 100; Pulse 72; Resp 18; Temp 98.6; Pulse Ox 100% on R/A; Weight 132 kg; Height wg 6 ft. 0 in. (182.88 cm); Pain 10/10; 01:24 BP 150 / 79; Pulse 63; Resp 22; Temp 97.7; Pulse Ox 99% ; cc4 02:00 BP 209 / 91; Pulse 67; Resp 20; Pulse Ox 95% on R/A; cc4 02:30 BP 166 / 85; Pulse 63; Resp 20; Pulse Ox 95% on R/A; cc4 03:11 BP 158 / 92; Pulse 62; Resp 22; Pulse Ox 96% on R/A; cc4 03:30 BP 157 / 92; Pulse 64; Resp 16; Pulse Ox 92% on R/A; cc4 04:00 BP 142 / 87; Pulse 66; Resp 20; Temp 97.0; Pulse Ox 97% on R/A; cc4 00:40 Body Mass Index 39.47 (132.00 kg, 182.88 cm) wg Vitals: 02:30 Cardiac Rhythm Assessment Regular Sinus rhythm. cc4 ED Course: 00:37 Patient arrived in ED. bp1 00:45 Triage completed. wg 00:45 Arm band placed on right wrist. wg 00:49 Dolores Trent MD is Attending Physician. ma2 01:24 No provider procedures requiring assistance completed. Urine collected: clean catch cc4 specimen, kamilla colored. Inserted saline lock: 20 gauge in right antecubital area, using aseptic technique. Accessed. 01:30 Inserted saline lock: 20 gauge in right antecubital area, using aseptic technique. dc2 Blood collected. 01:40 Basic Metabolic Panel Sent. cc4 01:40 CBC with Diff Sent. cc4 01:40 Hepatic Function Sent. cc4 01:41 Lipase Sent. cc4 02:00 CT Abd/Pelvis - IV Contrast Only In Process Unspecified. EDMS 02:22 Taryn Darnell, LUIS ENRIQUE is Primary Nurse. cc4 03:52 Mahesh Mendoza MD is Referral Physician. ma2 04:10 Patient has correct armband on for positive identification. Bed in low position. Side cc4 rails up X 1. 04:10 IV discontinued, intact, bleeding controlled, No redness/swelling at site. Pressure cc4 dressing applied. Administered Medications: 04:47 Discontinued: NS 0.9% 1000 ml IV at 1 bolus Per protocol; 1000 mL bolus cc4 01:29 Drug: NS 0.9% 1000 ml Route: IV; Rate: 1 bolus; Infused Over: 1 hrs; Site: right cc4 antecubital; Delivery: Primary tubing; 01:30 Drug: Dilaudid (HYDROmorphone) 1 mg Route: IVP; Site: right antecubital; cc4 02:00 Follow up: Response: No adverse reaction; Pain is decreased cc4 01:50 Drug: Flomax (tamsulosin) 0.4 mg Route: PO; cc4 03:00 Follow up: Response: No adverse reaction cc4 01:50 Drug: Zofran (Ondansetron) 2 mg Route: IVP; Site: right antecubital; cc4 02:00 Follow up: Response: No adverse reaction cc4 02:25 Drug: morphine 4 mg Route: IVP; Site: right antecubital; cc4 03:00 Follow up: Response: No adverse reaction; Pain is decreased cc4 03:15 Drug: Dilaudid (HYDROmorphone) 2 mg Route: IVP; Site: right antecubital; cc4 04:10 Follow up: Response: No adverse reaction; Pain is decreased cc4 Outcome: 03:52 Discharge ordered by . ma2 04:10 Discharged to home with friend. cc4 04:10 Condition: improved 04:10 Discharge instructions given to patient, friend, Instructed on discharge instructions, follow up and referral plans. medication usage, Demonstrated understanding of instructions, follow-up care, medications. 04:48 Patient left the ED. cc4 Signatures: Dispatcher [employer] EDMS Dolores Trent MD MD ma2 Chelsea Mariee Liam, RN wg Cooper, Christie, RN RN cc4 Patricia Conteh RN RN dc2
--- NOTE | 2021-05-14 03:52 | EDPHYS ---
Physician Documentation [facility] Name: Lazaro Rivers Age: 61 yrs Sex: Male : 1960 Arrival Date: 05/14/2021 Time: 00:37 Bed 30 Private MD: ED Physician Dolores Trent HPI: 05/14 03:08 This 61 yrs old Male presents to ER via Ambulatory with complaints of Flank ma2 Pain. 03:08 The patient complains of pain in the left low back. The pain radiates. Onset: The ma2 symptoms/episode began/occurred suddenly, 2 hour(s) ago. Associated signs and symptoms: Pertinent negatives: dysuria, urinary frequency, headache, nausea. Severity of pain: At its worst the pain was severe in the emergency department the pain is unchanged. The patient has experienced a previous episode. Historical: - Allergies: 00:45 No Known Allergies; wg - PMHx: 00:45 Hypertension; Thyroid problem; wg - Immunization history:: Adult Immunizations up to date. - Social history:: Smoking status: Patient denies any tobacco usage or history of. Patient/guardian denies using alcohol, street drugs, The patient lives. - Family history:: not pertinent. ROS: 03:08 Constitutional: Negative for fever, chills, and weight loss, Eyes: Negative for injury, ma2 pain, redness, and discharge. 03:08 All other systems are negative. Exam: 03:08 Constitutional: This is a well developed, well nourished patient who is awake, alert, ma2 and in no acute distress. Head/Face: Normocephalic, atraumatic. Eyes: Pupils equal round and reactive to light, extra-ocular motions intact. Lids and lashes normal. Conjunctiva and sclera are non-icteric and not injected. Cornea within normal limits. Periorbital areas with no swelling, redness, or edema. ENT: Nares patent. No nasal discharge, no septal abnormalities noted. Tympanic membranes are normal and external auditory canals are clear. Oropharynx with no redness, swelling, or masses, exudates, or evidence of obstruction, uvula midline. Mucous membranes moist. Neck: Trachea midline, no thyromegaly or masses palpated, and no cervical lymphadenopathy. Supple, full range of motion without nuchal rigidity, or vertebral point tenderness. No Meningismus. Chest/axilla: Normal chest wall appearance and motion. Nontender with no deformity. No lesions are appreciated. Cardiovascular: Regular rate and rhythm with a normal S1 and S2. No gallops, murmurs, or rubs. Normal PMI, no JVD. No pulse deficits. Respiratory: Lungs have equal breath sounds bilaterally, clear to auscultation and percussion. No rales, rhonchi or wheezes noted. No increased work of breathing, no retractions or nasal flaring. Abdomen/GI: Soft, non-tender, with normal bowel sounds. No distension or tympany. No guarding or rebound. No evidence of tenderness throughout. Back: No spinal tenderness. No costovertebral tenderness. Full range of motion. Skin: Warm, dry with normal turgor. Normal color with no rashes, no lesions, and no evidence of cellulitis. MS/ Extremity: Pulses equal, no cyanosis. Neurovascular intact. Full, normal range of motion. Neuro: Awake and alert, GCS 15, oriented to person, place, time, and situation. Cranial nerves II-XII grossly intact. Motor strength 5/5 in all extremities. Sensory grossly intact. Cerebellar exam normal. Normal gait. Vital Signs: 00:40 BP 161 / 100; Pulse 72; Resp 18; Temp 98.6; Pulse Ox 100% on R/A; Weight 132 kg; Height wg 6 ft. 0 in. (182.88 cm); Pain 10/10; 01:24 BP 150 / 79; Pulse 63; Resp 22; Temp 97.7; Pulse Ox 99% ; cc4 02:00 BP 209 / 91; Pulse 67; Resp 20; Pulse Ox 95% on R/A; cc4 02:30 BP 166 / 85; Pulse 63; Resp 20; Pulse Ox 95% on R/A; cc4 03:11 BP 158 / 92; Pulse 62; Resp 22; Pulse Ox 96% on R/A; cc4 03:30 BP 157 / 92; Pulse 64; Resp 16; Pulse Ox 92% on R/A; cc4 04:00 BP 142 / 87; Pulse 66; Resp 20; Temp 97.0; Pulse Ox 97% on R/A; cc4 00:40 Body Mass Index 39.47 (132.00 kg, 182.88 cm) wg MDM: 00:59 Patient medically screened. mt2 03:08 Differential diagnosis: nephrolithiasis, pyelonephritis, UTI, pancreatitis. mt2 03:30 Data reviewed: vital signs, nurses notes. Counseling: I had a detailed discussion with ma2 the patient and/or guardian regarding: the historical points, exam findings, and any diagnostic results supporting the discharge/admit diagnosis, the presence of at least one elevated blood pressure reading (>120/80) during this emergency department visit, the need for outpatient follow up. Response to treatment: the patient's symptoms have markedly improved after treatment. 05/14 00:46 Order name: Basic Metabolic Panel; Complete Time: 02:51 05/14 00:46 Order name: CBC with Diff; Complete Time: 02:51 05/14 00:46 Order name: Hepatic Function; Complete Time: 02:51 05/14 00:46 Order name: Lipase; Complete Time: 02:51 05/14 01:43 Order name: Urine Dipstick-Ancillary; Complete Time: 02:20 EDMS 05/14 00:46 Order name: IV Saline Lock; Complete Time: 01:40 05/14 01:05 Order name: CT Abd/Pelvis - IV Contrast Only [facility] 05/14 00:46 Order name: Labs collected and sent; Complete Time: 01:40 05/14 00:46 Order name: Urine Dipstick-Ancillary (obtain specimen); Complete Time: 01:42 wg Administered Medications: 04:47 Discontinued: NS 0.9% 1000 ml IV at 1 bolus Per protocol; 1000 mL bolus cc4 01:29 Drug: NS 0.9% 1000 ml Route: IV; Rate: 1 bolus; Infused Over: 1 hrs; Site: right cc4 antecubital; Delivery: Primary tubing; 01:30 Drug: Dilaudid (HYDROmorphone) 1 mg Route: IVP; Site: right antecubital; cc4 02:00 Follow up: Response: No adverse reaction; Pain is decreased cc4 01:50 Drug: Flomax (tamsulosin) 0.4 mg Route: PO; cc4 03:00 Follow up: Response: No adverse reaction cc4 01:50 Drug: Zofran (Ondansetron) 2 mg Route: IVP; Site: right antecubital; cc4 02:00 Follow up: Response: No adverse reaction cc4 02:25 Drug: morphine 4 mg Route: IVP; Site: right antecubital; cc4 03:00 Follow up: Response: No adverse reaction; Pain is decreased cc4 03:15 Drug: Dilaudid (HYDROmorphone) 2 mg Route: IVP; Site: right antecubital; cc4 04:10 Follow up: Response: No adverse reaction; Pain is decreased cc4 Disposition Summary: 05/14/21 03:52 Discharge Ordered Location: Home ma2 Condition: Stable ma2 Diagnosis - Calculus of ureter - left ma2 Followup: ma2 - With: - When: Tomorrow - Reason: Continuance of care Discharge Instructions: - Discharge Summary Sheet ma2 - Kidney Stones ma2 - Renal Colic, [id number] ma2 - Dietary Guidelines to Help Prevent Kidney Stones ma2 Forms: - Medication Reconciliation Form ma2 - Thank You Letter ma2 - Antibiotic Education ma2 - Prescription Opioid Use ma2 Prescriptions: - Flomax 0.4 mg Oral capsule - take 1 capsule by ORAL route once daily 1/2 hour following the same meal each ma2 day; 60 capsule; Refills: 0, Product Selection Permitted - Diclofenac Sodium 75 mg Oral Tablet Sustained Release - take 1 tablet by ORAL route 2 times per day; 30 tablet; Refills: 0, Product mt2 Selection Permitted Signatures: Dispatcher [employer] Dolores Geronimo MD MD mt2 Main Blankenship RN wg Cooper, Christie, RN RN cc4 Corrections: (The following items were deleted from the chart) 01:20 00:59 Stone Protocol+[id number].BRZ ordered. EDMS EDMS
[2021-05-14 11:25] VITALS: BP 142/87; TEMP 97; O2SAT 97
--- NOTE | 2021-05-14 11:45 | RAD REPORT ---
EXAM DESCRIPTION: CT - Abdomen Pelvis W Contrast - 05/14/2021 7:06 am COMPARISON: None. CLINICAL HISTORY: [facility] MAIN llq and left flank TECHNIQUE: CT of the abdomen and pelvis was acquired with IV contrast material. Coronal and sagitt al reconstructions were obtained. Automated exposure control was utilized on this examination as a dose lowering technique. FINDINGS: Lung bases: Clear. Liver: Normal. Gallbladder and biliary: Normal gallbladder. Unremarkable biliary tree. Pancreas: Normal. Spleen: Normal. Adrenal glands: Normal adrenal glands. Kidneys: There is a 4 mm obstructing calculus of the distal left ureter with mild left hydronephrosis and perinephric stranding. Additional nonobstructing bilateral calculi measure up to 3 mm. Small rig ht renal cysts are noted. Stomach and Small Bowel: The stomach and small bowel are normal. Urinary bladder: Mild bladder wall thickening is likely due to decompression. Prostate/Male Urogenital: Normal. Colon and Appendix: Moderate sigmoid colon diverticulosis. No evidence of appendicitis. Retroperitoneum and lymph nodes: Normal. Vascular: Mild atherosclerosis. Peritoneal cavity: No ascites or free air. Musculoskeletal and soft tissues: Soft tissues are unremarkable. Lumbar spondylosis is present. No ag gressive bone lesions. No compression fracture. IMPRESSION 1. 4 mm obstructing calculus of the distal left ureter with mild left hydronephrosis an d perinephric stranding. 2. Additional nonobstructing bilateral calculi measure up to 3 mm. 3. Moderate sigmoid colon diverticulosis. Electronically signed by: Velasquez Amaya MD 05/14/2021 2:35 AM CDT Due to temporary technical issues with the PACS/Fluency reporting system, reports are being signed by the in house radiologist without review as a courtesy to ensure prompt reporting. The interpreting r adiologist is fully responsible for the content of the report.
== END 2021-05-14 04:48 | disposition home or self-care (01) ==
LOC: ER 00:34
DX: N20.1 Calculus of ureter (principal); I10 Essential (primary) hypertension
CPT/HCPCS: 85025; 80048; 36415; 82565; 80076; 81003; 83690; 74177; 96375; 96374; 99284; Q9967; J1170 ×2; J7030; J2405